=== PATIENT | female | born 1935 | race Two or more races ===

== ENCOUNTER 2017-04-19 19:17 | Inpatient (IN) | payer OTHER ==
[2017-04-19] MEDS: morphine 4 MG/ML VIAL IV (23:36)
[2017-04-19] MEDS: SODIUM CHLORIDE 0.9% 1L BAG IV* (23:36)
[2017-04-19] MEDS: ONDANSETRON 4 MG INJ IV (23:36)
[2017-04-19 23:38] LABS: ADD MAN DIFF? NO
[2017-04-19 23:46] LABS: WHITE BLOOD COUNT 13.1 10^3/ul (4.8-10.8)
[2017-04-19 23:46] LABS: ABNORMAL IP MESSAGE 1; BASOPHILS % 0.2 % (0.0-2.0); EOSINOPHILS # 0.2 10^3/ul (0.0-0.5); EOSINOPHILS % 1.6 % (0.0-7.0); HEMATOCRIT 23.9 % (37.0-47.0); LYMPHOCYTES # 2.5 10^3/ul (0.8-2.9); LYMPHOCYTES % 18.9 % (15.0-51.0); MEAN CORPUSCULAR HEMOGLOBIN 23.8 pg (29.0-33.0); MEAN CORPUSCULAR HGB CONC 28.5 g/dl (32.0-37.0); MEAN CORPUSCULAR VOLUME 83.6 fl (82.0-101.0); MEAN PLATELET VOLUME 8.9 fl (7.4-10.4); MONOCYTE # 1.1 10^3/ul (0.3-0.9); MONOCYTES % 8.3 % (0.0-11.0); NEUTROPHIL # 9.2 10^3/ul (1.6-7.5); NEUTROPHILS % 70.5 % (39.0-77.0); PLATELET COUNT 368 10^3/UL (140-415); RED BLOOD COUNT 2.86 10^6/ul (4.20-5.40); RED CELL DISTRIBUTION WIDTH 14.6 % (11.5-14.5)
[2017-04-19 23:52] LABS: HEMOGLOBIN 6.8 g/dl (12.0-16.0); POSITIVE DIFF @See below
[2017-04-19 23:53] LABS: PATH REVIEW? YES
[2017-04-20] LABS: INR 1.11; PROTIME 14.5 Sec (11.9-14.9); PT RATIO 1.1
[2017-04-20 00:01] LABS: PARTIAL THROMBOPLASTIN TIME 29.3 Sec (25.0-35.0)
[2017-04-20 00:03] LABS: ALANINE AMINOTRANSFERASE 25 IU/L (13-69); ALBUMIN 3.4 g/dl (3.3-4.9); ALBUMIN/GLOBULIN RATIO 1.03; ALKALINE PHOSPHATASE 54 IU/L (42-121); ANION GAP 15 (8-16); ASPARTATE AMINO TRANSFERASE 15 IU/L (15-46); BILIRUBIN,INDIRECT 0.2 mg/dl (0-1.1); BILIRUBIN,TOTAL 0.2 mg/dl (0.2-1.3); BLOOD UREA NITROGEN 18 mg/dl (7-20); CALCIUM 9.4 mg/dl (8.4-10.2); CARBON DIOXIDE 28 mmol/L (21-31); CHLORIDE 101 mmol/L (97-110); CREATININE 0.67 mg/dl (0.44-1.00); GLUCOSE 96 mg/dl (70-220); POTASSIUM 3.8 mmol/L (3.5-5.1); SODIUM 140 mmol/L (135-144); TOTAL PROTEIN 6.7 g/dl (6.1-8.1)
[2017-04-20 00:06] LABS: LACTIC ACID 1.5 mmol/L (0.5-2.0)
[2017-04-20 00:38] LABS: TROPONIN-I < 0.012 ng/ml (0.00-0.12)
[2017-04-20 01:15] LABS: LACTIC ACID 1.2 mmol/L (0.5-2.0)
[2017-04-20 06:38] LABS: IMMEDIATE SPIN CROSSMATCH 1 2
[2017-04-20] MEDS ORDERED: ACETAMINOPHEN 325 MG TAB PO (07:30)
[2017-04-20] MEDS ORDERED: GLUCOSE GEL 15 GRAM TUBE BUCCAL (07:30)
[2017-04-20] MEDS ORDERED: GLUCOSE GEL 15 GRAM TUBE PO ×2 (07:30)
[2017-04-20] MEDS ORDERED: GLUCAGON 1 MG INJ IM (07:30)
[2017-04-20] MEDS ORDERED: DEXTROSE 50% 50 ML SYRINGE IV ×2 (07:30)
[2017-04-20] MEDS ORDERED: NACL 0.9% 3 ML SYG IV (07:30)
[2017-04-20 08:43] LABS: CANCER ANTIGEN 125 6.3 U/ml (0.0-35.0)
[2017-04-20 09:07] LABS: ALPHA FETOPROTEIN 0.98 IU/L (0.00-7.21)
[2017-04-20] MEDS: INSULIN ASPART [NOVOLOG] 3 ML PEN SC ×2 (10:25→13:00)
[2017-04-20] MEDS: SOD CHLORIDE 0.9% 1,000 ML IV (10:27)
[2017-04-20] MEDS: morphine 2 MG INJ IV (10:46)
[2017-04-20 12:08] LABS: CARCINOEMBRYONIC ANTIGEN 6.1 ng/ml (0.0-5.0)
[2017-04-20 12:08] LABS: CANCER ANTIGEN 19-9 > 1000.0 U/ml (0.0-37.0)
[2017-04-20 13:23] LABS: ADD MAN DIFF? NO
[2017-04-20 13:25] LABS: WHITE BLOOD COUNT 8.7 10^3/ul (4.8-10.8)
[2017-04-20 13:25] LABS: BASOPHILS % 0.2 % (0.0-2.0); EOSINOPHILS # 0.1 10^3/ul (0.0-0.5); EOSINOPHILS % 1.3 % (0.0-7.0); HEMATOCRIT 25.6 % (37.0-47.0); HEMOGLOBIN 7.7 g/dl (12.0-16.0); LYMPHOCYTES # 1.3 10^3/ul (0.8-2.9); LYMPHOCYTES % 15.4 % (15.0-51.0); MEAN CORPUSCULAR HEMOGLOBIN 25.1 pg (29.0-33.0); MEAN CORPUSCULAR HGB CONC 30.1 g/dl (32.0-37.0); MEAN CORPUSCULAR VOLUME 83.4 fl (82.0-101.0); MONOCYTE # 0.8 10^3/ul (0.3-0.9); MONOCYTES % 9.1 % (0.0-11.0); NEUTROPHIL # 6.4 10^3/ul (1.6-7.5); NEUTROPHILS % 73.4 % (39.0-77.0); PLATELET COUNT 287 10^3/UL (140-415); RED BLOOD COUNT 3.07 10^6/ul (4.20-5.40); RED CELL DISTRIBUTION WIDTH 14.4 % (11.5-14.5)
[2017-04-20] MEDS ORDERED: LORAZEPAM 0.5 MG TAB PO (14:00)
[2017-04-20 14:18] LABS: LIPASE 94 U/L (23-300)
[2017-04-20] MEDS: FAMOTIDINE 20 MG INJ IV (16:52)
[2017-04-20] MEDS: Insulin NOVOLOG SS MILD Algorithm (SS with meals and bedtime) SC ×2 (17:25→21:00)
[2017-04-20] MEDS ORDERED: INSULIN ASPART [NOVOLOG] 3 ML PEN SC (17:25)
[2017-04-20] MEDS: POLYETHYLENE GLYCOL 17 GM PACKET PO (17:50)
[2017-04-20 19:23] LABS: ADD MAN DIFF? NO
[2017-04-20 19:27] LABS: WHITE BLOOD COUNT 10.3 10^3/ul (4.8-10.8)
[2017-04-20 19:27] LABS: BASOPHILS % 0.1 % (0.0-2.0); EOSINOPHILS # 0.2 10^3/ul (0.0-0.5); EOSINOPHILS % 1.9 % (0.0-7.0); HEMATOCRIT 27.1 % (37.0-47.0); HEMOGLOBIN 8.2 g/dl (12.0-16.0); LYMPHOCYTES # 1.6 10^3/ul (0.8-2.9); LYMPHOCYTES % 15.4 % (15.0-51.0); MEAN CORPUSCULAR HEMOGLOBIN 25.1 pg (29.0-33.0); MEAN CORPUSCULAR HGB CONC 30.3 g/dl (32.0-37.0); MEAN CORPUSCULAR VOLUME 82.9 fl (82.0-101.0); MEAN PLATELET VOLUME 8.9 fl (7.4-10.4); MONOCYTE # 0.9 10^3/ul (0.3-0.9); MONOCYTES % 8.7 % (0.0-11.0); NEUTROPHIL # 7.5 10^3/ul (1.6-7.5); NEUTROPHILS % 73.4 % (39.0-77.0); PLATELET COUNT 297 10^3/UL (140-415); RED BLOOD COUNT 3.27 10^6/ul (4.20-5.40); RED CELL DISTRIBUTION WIDTH 14.3 % (11.5-14.5)
[2017-04-20] MEDS: FERROUS SULFATE (EC) 325 MG TAB PO (20:55)
[2017-04-20 22:37] LABS: ADD UMIC YES; UR ASCORBIC ACID NEGATIVE (NEGATIVE); UR BILIRUBIN (Dip) NEGATIVE (NEGATIVE); UR BLOOD (Dip) 1+ mg/dL (NEGATIVE); UR CLARITY CLEAR (CLEAR); UR COLOR YELLOW (YELLOW); UR GLUCOSE (Dip) NEGATIVE (NEGATIVE); UR KETONES (Dip) NEGATIVE (NEGATIVE); UR LEUKOCYTE ESTERASE (Dip) NEGATIVE Leu/ul (NEGATIVE); UR MUCUS FEW /HPF (NONE SEEN); UR NITRITE (Dip) NEGATIVE (NEGATIVE); UR RBC 1 /HPF (0-5); UR SPECIFIC GRAVITY (Dip) 1.025 (1.003-1.030); UR SQUAMOUS EPITHELIAL CELL FEW /HPF (FEW); UR TOTAL PROTEIN (Dip) NEGATIVE (NEGATIVE); UR UROBILINOGEN (Dip) 2+ mg/dL (NEGATIVE); UR WBC 3 /HPF (0-5)
[2017-04-21] MEDS: ACCU-CHEK XX (02:00)
[2017-04-21] MEDS: ACCUCHECK AT 2AM (Patients on SS coverage) XX (02:00)
[2017-04-21 03:31] LABS: ADD MAN DIFF? NO
[2017-04-21 04:06] LABS: BASOPHILS % 0.2 % (0.0-2.0); EOSINOPHILS # 0.2 10^3/ul (0.0-0.5); EOSINOPHILS % 2.1 % (0.0-7.0); HEMATOCRIT 28.7 % (37.0-47.0); HEMOGLOBIN 8.5 g/dl (12.0-16.0); LYMPHOCYTES # 1.6 10^3/ul (0.8-2.9); LYMPHOCYTES % 16.8 % (15.0-51.0); MEAN CORPUSCULAR HEMOGLOBIN 24.8 pg (29.0-33.0); MEAN CORPUSCULAR HGB CONC 29.6 g/dl (32.0-37.0); MEAN CORPUSCULAR VOLUME 83.7 fl (82.0-101.0); MEAN PLATELET VOLUME 8.9 fl (7.4-10.4); MONOCYTE # 0.9 10^3/ul (0.3-0.9); MONOCYTES % 9.3 % (0.0-11.0); NEUTROPHIL # 6.6 10^3/ul (1.6-7.5); NEUTROPHILS % 71.1 % (39.0-77.0); PLATELET COUNT 312 10^3/UL (140-415); RED BLOOD COUNT 3.43 10^6/ul (4.20-5.40); RED CELL DISTRIBUTION WIDTH 14.6 % (11.5-14.5)
[2017-04-21 04:06] LABS: WHITE BLOOD COUNT 9.3 10^3/ul (4.8-10.8)
[2017-04-21] MEDS: PANTOPRAZOLE 40 MG INJ IV (06:26)
[2017-04-21 06:51] LABS: ADD MAN DIFF? NO
[2017-04-21 06:57] LABS: BASOPHILS % 0.2 % (0.0-2.0); EOSINOPHILS # 0.2 10^3/ul (0.0-0.5); EOSINOPHILS % 2.4 % (0.0-7.0); HEMATOCRIT 26.9 % (37.0-47.0); LYMPHOCYTES # 1.6 10^3/ul (0.8-2.9); LYMPHOCYTES % 17.6 % (15.0-51.0); MEAN CORPUSCULAR HGB CONC 29.7 g/dl (32.0-37.0); MEAN CORPUSCULAR VOLUME 84.1 fl (82.0-101.0); MEAN PLATELET VOLUME 9.1 fl (7.4-10.4); MONOCYTE # 0.8 10^3/ul (0.3-0.9); MONOCYTES % 9.1 % (0.0-11.0); NEUTROPHIL # 6.3 10^3/ul (1.6-7.5); NEUTROPHILS % 70.4 % (39.0-77.0); PLATELET COUNT 294 10^3/UL (140-415); RED CELL DISTRIBUTION WIDTH 14.5 % (11.5-14.5)
[2017-04-21 06:57] LABS: WHITE BLOOD COUNT 8.9 10^3/ul (4.8-10.8)
[2017-04-21] MEDS: Insulin NOVOLOG SS MILD Algorithm (SS with meals and bedtime) SC ×4 (07:25→21:00)
[2017-04-21 07:35] LABS: ALANINE AMINOTRANSFERASE 36 IU/L (13-69); ALBUMIN 2.9 g/dl (3.3-4.9); ALBUMIN/GLOBULIN RATIO 1.07; ALKALINE PHOSPHATASE 68 IU/L (42-121); ANION GAP 10 (8-16); ASPARTATE AMINO TRANSFERASE 25 IU/L (15-46); BILIRUBIN,INDIRECT 0.4 mg/dl (0-1.1); BILIRUBIN,TOTAL 0.4 mg/dl (0.2-1.3); BLOOD UREA NITROGEN 12 mg/dl (7-20); CALCIUM 8.7 mg/dl (8.4-10.2); CARBON DIOXIDE 31 mmol/L (21-31); CHLORIDE 104 mmol/L (97-110); CHOL/HDL RATIO 3.3 RATIO; CHOLESTEROL 76 mg/dl (100-200); CREATININE 0.73 mg/dl (0.44-1.00); GLUCOSE 96 mg/dl (70-220); HDL CHOLESTEROL 23 mg/dl (33-92); LDL CHOLESTEROL,CALCULATED 38 mg/dl; POTASSIUM 3.9 mmol/L (3.5-5.1); SODIUM 141 mmol/L (135-144); TOTAL PROTEIN 5.6 g/dl (6.1-8.1); TRIGLYCERIDES 77 mg/dl (0-149)
[2017-04-21 08:30] LABS: THYROID STIMULATING HORMONE 0.742 MIU/L (0.465-4.680)
[2017-04-21] MEDS: CYANOCOBALAMIN 500 MCG TAB PO (09:00)
[2017-04-21] MEDS: ASPIRIN (EC) 81 MG TAB PO (09:00)
[2017-04-21] MEDS: FERROUS SULFATE (EC) 325 MG TAB PO ×2 (09:00→21:00)
[2017-04-21] MEDS: VALSARTAN 80 MG TAB PO (09:04)
[2017-04-21] MEDS: AMLODIPINE 5 MG TAB PO (09:05)
[2017-04-21] MEDS: POLYETHYLENE GLYCOL 17 GM PACKET PO (09:05)
[2017-04-21] MEDS: DIGOXIN 0.25 MG TAB PO (09:05)
[2017-04-21 11:41] LABS: ADD MAN DIFF? NO
[2017-04-21 11:53] LABS: WHITE BLOOD COUNT 9.7 10^3/ul (4.8-10.8)
[2017-04-21 11:53] LABS: BASOPHILS % 0.1 % (0.0-2.0); EOSINOPHILS # 0.1 10^3/ul (0.0-0.5); EOSINOPHILS % 1.2 % (0.0-7.0); HEMATOCRIT 26.1 % (37.0-47.0); HEMOGLOBIN 7.8 g/dl (12.0-16.0); LYMPHOCYTES # 1.2 10^3/ul (0.8-2.9); LYMPHOCYTES % 12.6 % (15.0-51.0); MEAN CORPUSCULAR HEMOGLOBIN 24.9 pg (29.0-33.0); MEAN CORPUSCULAR HGB CONC 29.9 g/dl (32.0-37.0); MEAN CORPUSCULAR VOLUME 83.4 fl (82.0-101.0); MEAN PLATELET VOLUME 8.9 fl (7.4-10.4); MONOCYTE # 0.7 10^3/ul (0.3-0.9); MONOCYTES % 7.6 % (0.0-11.0); NEUTROPHIL # 7.6 10^3/ul (1.6-7.5); NEUTROPHILS % 78.1 % (39.0-77.0); PLATELET COUNT 293 10^3/UL (140-415); RED BLOOD COUNT 3.13 10^6/ul (4.20-5.40); RED CELL DISTRIBUTION WIDTH 14.7 % (11.5-14.5)
[2017-04-21] MEDS ORDERED: morphine LIQ (10 MG/5 ML) CUP PO (17:00)
[2017-04-21] MEDS: LACTULOSE 30ML CUP PO (20:57)
[2017-04-22 01:02] LABS: CANCER ANTIGEN 15-3 16 U/mL (<32)
[2017-04-22] MEDS: ACCU-CHEK XX (02:00)
[2017-04-22] MEDS: ACCUCHECK AT 2AM (Patients on SS coverage) XX (02:00)
[2017-04-22] MEDS: PANTOPRAZOLE 40 MG INJ IV (05:47)
[2017-04-22] MEDS: Insulin NOVOLOG SS MILD Algorithm (SS with meals and bedtime) SC ×4 (07:25→21:00)
[2017-04-22 07:49] LABS: ADD MAN DIFF? NO
[2017-04-22] MEDS: VALSARTAN 80 MG TAB PO (07:54)
[2017-04-22] MEDS: LACTULOSE 30ML CUP PO (07:54)
[2017-04-22] MEDS: AMLODIPINE 5 MG TAB PO (07:55)
[2017-04-22] MEDS: DIGOXIN 0.25 MG TAB PO (07:55)
[2017-04-22 07:57] LABS: BASOPHILS % 0.2 % (0.0-2.0); EOSINOPHILS # 0.2 10^3/ul (0.0-0.5); EOSINOPHILS % 2.5 % (0.0-7.0); HEMATOCRIT 26.5 % (37.0-47.0); HEMOGLOBIN 7.9 g/dl (12.0-16.0); LYMPHOCYTES # 1.8 10^3/ul (0.8-2.9); LYMPHOCYTES % 18.4 % (15.0-51.0); MEAN CORPUSCULAR HEMOGLOBIN 25.2 pg (29.0-33.0); MEAN CORPUSCULAR HGB CONC 29.8 g/dl (32.0-37.0); MEAN CORPUSCULAR VOLUME 84.4 fl (82.0-101.0); MEAN PLATELET VOLUME 9.2 fl (7.4-10.4); MONOCYTE # 0.8 10^3/ul (0.3-0.9); MONOCYTES % 8.8 % (0.0-11.0); NEUTROPHIL # 6.6 10^3/ul (1.6-7.5); NEUTROPHILS % 69.4 % (39.0-77.0); PLATELET COUNT 321 10^3/UL (140-415); RED BLOOD COUNT 3.14 10^6/ul (4.20-5.40); RED CELL DISTRIBUTION WIDTH 15.1 % (11.5-14.5)
[2017-04-22 07:57] LABS: WHITE BLOOD COUNT 9.5 10^3/ul (4.8-10.8)
[2017-04-22] MEDS: CYANOCOBALAMIN 500 MCG TAB PO (08:01)
[2017-04-22] MEDS: FERROUS SULFATE (EC) 325 MG TAB PO ×2 (08:01→21:07)
[2017-04-22] MEDS: ASPIRIN (EC) 81 MG TAB PO (08:01)
[2017-04-22 08:24] LABS: IRON < 10 ug/dl (35-150)
[2017-04-22 08:31] LABS: TOTAL IRON BINDING CAPACITY 338 ug/dl (241-421)
[2017-04-22 08:32] LABS: ALANINE AMINOTRANSFERASE 29 IU/L (13-69); ALBUMIN/GLOBULIN RATIO 1.07; ALKALINE PHOSPHATASE 67 IU/L (42-121); ANION GAP 11 (8-16); ASPARTATE AMINO TRANSFERASE 16 IU/L (15-46); BILIRUBIN,INDIRECT 0.2 mg/dl (0-1.1); BILIRUBIN,TOTAL 0.2 mg/dl (0.2-1.3); BLOOD UREA NITROGEN 13 mg/dl (7-20); CALCIUM 8.7 mg/dl (8.4-10.2); CARBON DIOXIDE 31 mmol/L (21-31); CHLORIDE 104 mmol/L (97-110); CREATININE 0.68 mg/dl (0.44-1.00); GLUCOSE 95 mg/dl (70-220); POTASSIUM 3.8 mmol/L (3.5-5.1); SODIUM 142 mmol/L (135-144); TOTAL PROTEIN 5.8 g/dl (6.1-8.1)
[2017-04-22] MEDS: POLYETHYLENE GLYCOL 17 GM PACKET PO (09:00)
[2017-04-22 09:22] LABS: FERRITIN 10.7 ng/ml (11.1-264.0)
[2017-04-22 12:52] LABS: OCCULT BLOOD STOOL POSITIVE (NEGATIVE)
[2017-04-22] MEDS: MIDAZOLAM 1 MG/ML 2 ML INJ (14:40)
[2017-04-22] MEDS: LIDOCAINE 2% (SDV) 5 ML INJ (14:40)
[2017-04-22] MEDS: PROPOFOL 20 ML (14:40)
[2017-04-22] MEDS ORDERED: LACTULOSE 30ML CUP PO (16:30)
[2017-04-22] MEDS: SOD FERRIC GLUC COMPLX 125 MG in SOD CHLORIDE 0.9% 100 ML IVPB (17:20)
[2017-04-23] MEDS: ACCUCHECK AT 2AM (Patients on SS coverage) XX (02:00)
[2017-04-23] MEDS: PANTOPRAZOLE 40 MG INJ IV (05:31)
[2017-04-23] MEDS: Insulin NOVOLOG SS MILD Algorithm (SS with meals and bedtime) SC ×2 (07:25→11:20)
[2017-04-23] MEDS: DIGOXIN 0.25 MG TAB PO (09:49)
[2017-04-23] MEDS: AMLODIPINE 5 MG TAB PO (09:49)
[2017-04-23] MEDS: VALSARTAN 80 MG TAB PO (09:49)
[2017-04-23] MEDS: CYANOCOBALAMIN 500 MCG TAB PO (09:49)
[2017-04-23] MEDS: ASPIRIN (EC) 81 MG TAB PO (09:49)
[2017-04-23] MEDS: FERROUS SULFATE (EC) 325 MG TAB PO (09:50)
[2017-04-23] MEDS: POLYETHYLENE GLYCOL 17 GM PACKET PO (09:50)
[2017-04-23] MEDS: SOD FERRIC GLUC COMPLX 125 MG in SOD CHLORIDE 0.9% 100 ML IVPB (12:13)
== END 2017-04-23 15:29 | disposition home or self-care (01) | DRG 375 ==
LOC: E/R 19:17 → TEL 04-20 05:50
PROC: 0DB68ZX Excision of Stomach, Via Natural or Artificial Opening Endoscopic, Diagnostic (ICD-10-PCS; principal; 2017-04-22 14:00)
PROC: 30233N1 Transfusion of Nonautologous Red Blood Cells into Peripheral Vein, Percutaneous Approach (ICD-10-PCS; 2017-04-22 14:00)
DX: C16.2 Malignant neoplasm of body of stomach (principal); C78.7 Secondary malignant neoplasm of liver and intrahepatic bile duct; I11.0 Hypertensive heart disease with heart failure; I48.91 Unspecified atrial fibrillation; K31.1 Adult hypertrophic pyloric stenosis; I50.9 Heart failure, unspecified; D37.8 Neoplasm of uncertain behavior of other specified digestive organs; D50.0 Iron deficiency anemia secondary to blood loss (chronic); E11.9 Type 2 diabetes mellitus without complications; K59.09 Other constipation; K22.5 Diverticulum of esophagus, acquired; R63.4 Abnormal weight loss; Z96.641 Presence of right artificial hip joint; Z68.24 Body mass index [BMI] 24.0-24.9, adult; Z90.49 Acquired absence of other specified parts of digestive tract; Z85.828 Personal history of other malignant neoplasm of skin; Z79.4 Long term (current) use of insulin
CPT/HCPCS: 36415; 36430; 71045; 74176; 74183; 80053; 80061; 80162; 81001; 82105; 82270; 82378; 82728; 82962; 83036; 83540; 83605; 83690; 83735; 84443; 84484; 85025; 85610; 85730; 86300; 86301; 86304; 86850; 86900; 86901; 86920; 87040; 87045; 87086; 88305; 88312; 93005; 93306; 96374; 96375; 99285-25

== ENCOUNTER 2017-05-13 15:37 | Inpatient (IN) | payer OTHER ==
[2017-05-13 17:49] LABS: ABNORMAL IP MESSAGE 1; MEAN PLATELET VOLUME 9.9 fl (7.4-10.4)
[2017-05-13 17:58] LABS: HEMATOCRIT 18.6 % (37.0-47.0); MEAN CORPUSCULAR VOLUME 79.1 fl (82.0-101.0); NUCLEATED RED BLOOD CELLS% 0.2 /100WBC (0.0-0.0); PLATELET COUNT 349 10^3/UL (140-415); RED BLOOD COUNT 2.35 10^6/ul (4.20-5.40); RED CELL DISTRIBUTION WIDTH 16.5 % (11.5-14.5)
[2017-05-13 17:58] LABS: WHITE BLOOD COUNT 10.8 10^3/ul (4.8-10.8)
[2017-05-13 18:02] LABS: ADD MAN DIFF? YES; HEMOGLOBIN 5.4 g/dl (12.0-16.0); POSITIVE DIFF @See below
[2017-05-13 18:09] LABS: INR 1.11; PROTIME 14.5 Sec (11.9-14.9); PT RATIO 1.1
[2017-05-13 18:10] LABS: ALANINE AMINOTRANSFERASE 23 IU/L (13-69); ALBUMIN/GLOBULIN RATIO 0.93; ALKALINE PHOSPHATASE 60 IU/L (42-121); ANION GAP 17 (8-16); ASPARTATE AMINO TRANSFERASE 13 IU/L (15-46); BILIRUBIN,INDIRECT 0.1 mg/dl (0-1.1); BILIRUBIN,TOTAL 0.1 mg/dl (0.2-1.3); BLOOD UREA NITROGEN 14 mg/dl (7-20); CALCIUM 8.7 mg/dl (8.4-10.2); CARBON DIOXIDE 25 mmol/L (21-31); CHLORIDE 101 mmol/L (97-110); CREATININE 0.66 mg/dl (0.44-1.00); GLUCOSE 103 mg/dl (70-220); LIPASE 70 U/L (23-300); PARTIAL THROMBOPLASTIN TIME 21.7 Sec (25.0-35.0); POTASSIUM 4.1 mmol/L (3.5-5.1); SODIUM 139 mmol/L (135-144); TOTAL PROTEIN 6.2 g/dl (6.1-8.1)
[2017-05-13 18:14] LABS: DIGOXIN 0.7 ng/ml (1.0-2.0)
[2017-05-13 18:21] LABS: B-TYPE NATRIURETIC PEPTIDE 2730 PG/ML (0-450)
[2017-05-13 18:22] LABS: TROPONIN-I < 0.012 ng/ml (0.00-0.12)
[2017-05-13 18:29] LABS: ANISOCYTOSIS 2+ (0-0); ERYTHROBLAST% (NRBC) (M) 1 % (0-0); HYPOCHROMASIA 2+ (0-0); LYMPHOCYTES #M 1.5 10^3/ul (0.8-2.9); LYMPHOCYTES % (M) 14 % (15-51); MICROCYTOSIS 2+ (0-0); MONOCYTE #M 0.3 10^3/ul (0.3-0.9); MONOCYTES % (M) 3 % (0-11); PLATELET ESTIMATE NORMAL; POIKILOCYTOSIS 1+ (0-0); POLYCHROMASIA 1+ (0-0); SEGMENTED NEUTROPHILS (M) % 83 % (39-77)
[2017-05-13] MEDS: SOD CHLORIDE 0.9% 1,000 ML IV (19:02)
[2017-05-13] MEDS ORDERED: ALBUTEROL/IPRATROPIUM (NEB) 3 ML AMP HHN (23:30)
[2017-05-13] MEDS ORDERED: NACL 0.9% 3 ML SYG IV (23:30)
[2017-05-13] MEDS ORDERED: ACETAMINOPHEN 325 MG TAB PO (23:30)
[2017-05-14] MEDS: PANTOPRAZOLE 40 MG INJ IV (05:48)
[2017-05-14 08:18] LABS: ADD MAN DIFF? NO
[2017-05-14 08:21] LABS: WHITE BLOOD COUNT 10.6 10^3/ul (4.8-10.8)
[2017-05-14 08:21] LABS: BASOPHILS % 0.2 % (0.0-2.0); EOSINOPHILS # 0.1 10^3/ul (0.0-0.5); EOSINOPHILS % 1.3 % (0.0-7.0); HEMATOCRIT 24.3 % (37.0-47.0); HEMOGLOBIN 7.4 g/dl (12.0-16.0); LYMPHOCYTES # 1.5 10^3/ul (0.8-2.9); LYMPHOCYTES % 14.1 % (15.0-51.0); MEAN CORPUSCULAR HEMOGLOBIN 24.6 pg (29.0-33.0); MEAN CORPUSCULAR HGB CONC 30.5 g/dl (32.0-37.0); MEAN CORPUSCULAR VOLUME 80.7 fl (82.0-101.0); MONOCYTE # 0.9 10^3/ul (0.3-0.9); MONOCYTES % 8.2 % (0.0-11.0); NEUTROPHILS % 75.5 % (39.0-77.0); PLATELET COUNT 356 10^3/UL (140-415); RED BLOOD COUNT 3.01 10^6/ul (4.20-5.40); RED CELL DISTRIBUTION WIDTH 15.9 % (11.5-14.5)
[2017-05-14] MEDS: FERROUS SULFATE (EC) 325 MG TAB PO ×2 (08:40→20:42)
[2017-05-14 08:46] LABS: ALANINE AMINOTRANSFERASE 15 IU/L (13-69); ALBUMIN 2.7 g/dl (3.3-4.9); ALKALINE PHOSPHATASE 57 IU/L (42-121); ANION GAP 14 (8-16); ASPARTATE AMINO TRANSFERASE 14 IU/L (15-46); BILIRUBIN,INDIRECT 0.9 mg/dl (0-1.1); BILIRUBIN,TOTAL 0.9 mg/dl (0.2-1.3); BLOOD UREA NITROGEN 12 mg/dl (7-20); CALCIUM 8.6 mg/dl (8.4-10.2); CARBON DIOXIDE 27 mmol/L (21-31); CHLORIDE 104 mmol/L (97-110); CREATININE 0.66 mg/dl (0.44-1.00); GLUCOSE 100 mg/dl (70-220); POTASSIUM 4.1 mmol/L (3.5-5.1); SODIUM 141 mmol/L (135-144); TOTAL PROTEIN 5.7 g/dl (6.1-8.1)
[2017-05-14 13:20] LABS: IMMEDIATE SPIN CROSSMATCH 1 4
[2017-05-14] MEDS: DIGOXIN 0.25 MG TAB PO (14:07)
[2017-05-14] MEDS: DOCUSATE SODIUM 100 MG CAP PO (14:35)
[2017-05-14] MEDS: morphine 2 MG INJ IV ×2 (14:42→21:13)
[2017-05-14 14:49] LABS: PATH REVIEW CH
[2017-05-14] MEDS: LORAZEPAM 0.5 MG TAB PO (16:34)
[2017-05-14] MEDS: SENNA/DOCUSATE NA (8.6MG/50MG) TAB PO (20:42)
[2017-05-15] MEDS: LORAZEPAM 0.5 MG TAB PO (00:07)
[2017-05-15] MEDS: ONDANSETRON 4 MG INJ IV (00:07)
[2017-05-15] MEDS: PANTOPRAZOLE 40 MG INJ IV (06:15)
[2017-05-15] MEDS: FERROUS SULFATE (EC) 325 MG TAB PO (08:27)
[2017-05-15] MEDS: SENNA/DOCUSATE NA (8.6MG/50MG) TAB PO (08:27)
[2017-05-15 08:31] LABS: ADD MAN DIFF? NO
[2017-05-15 08:37] LABS: BASOPHILS % 0.2 % (0.0-2.0); EOSINOPHILS # 0.1 10^3/ul (0.0-0.5); HEMATOCRIT 30.8 % (37.0-47.0); HEMOGLOBIN 9.4 g/dl (12.0-16.0); LYMPHOCYTES # 1.5 10^3/ul (0.8-2.9); LYMPHOCYTES % 11.5 % (15.0-51.0); MEAN CORPUSCULAR HEMOGLOBIN 25.1 pg (29.0-33.0); MEAN CORPUSCULAR HGB CONC 30.5 g/dl (32.0-37.0); MEAN CORPUSCULAR VOLUME 82.4 fl (82.0-101.0); MONOCYTES % 7.7 % (0.0-11.0); NEUTROPHIL # 9.9 10^3/ul (1.6-7.5); NEUTROPHILS % 78.6 % (39.0-77.0); NUCLEATED RED BLOOD CELLS% 0.2 /100WBC (0.0-0.0); PLATELET COUNT 318 10^3/UL (140-415); RED BLOOD COUNT 3.74 10^6/ul (4.20-5.40); RED CELL DISTRIBUTION WIDTH 16.2 % (11.5-14.5)
[2017-05-15 08:37] LABS: WHITE BLOOD COUNT 12.6 10^3/ul (4.8-10.8)
[2017-05-15] MEDS: DIGOXIN 0.25 MG TAB PO (12:43)
[2017-05-15] MEDS: LACTULOSE 30ML CUP PO (12:43)
== END 2017-05-15 18:10 | disposition home or self-care (01) | DRG 375 ==
LOC: TEL 18:05 → E/R 15:37
PROVIDERS: Pediatrics
PROC: 30233N1 Transfusion of Nonautologous Red Blood Cells into Peripheral Vein, Percutaneous Approach (ICD-10-PCS; 2017-05-13)
PROC: 30233N1 Transfusion of Nonautologous Red Blood Cells into Peripheral Vein, Percutaneous Approach (ICD-10-PCS; principal; 2017-05-14)
DX: C16.9 Malignant neoplasm of stomach, unspecified (principal); C78.7 Secondary malignant neoplasm of liver and intrahepatic bile duct; C78.89 Secondary malignant neoplasm of other digestive organs; D63.0 Anemia in neoplastic disease; I48.91 Unspecified atrial fibrillation; I10 Essential (primary) hypertension; E11.9 Type 2 diabetes mellitus without complications; Z90.49 Acquired absence of other specified parts of digestive tract; Z79.84 Long term (current) use of oral hypoglycemic drugs
CPT/HCPCS: 36415; 36430; 71045; 80053; 80162; 83690; 83735; 83880; 84484; 85025; 85610; 85730; 86850; 86900; 86901; 86920; 87081; 93005; 99291-25

== ENCOUNTER 2017-06-02 21:17 | Inpatient (IN) | payer OTHER ==
[2017-06-02 23:20] LABS: ADD MAN DIFF? NO
[2017-06-02] MEDS: SODIUM CHLORIDE 0.9% 1L BAG IV* (23:20)
[2017-06-02 23:22] LABS: WHITE BLOOD COUNT 13.5 10^3/ul (4.8-10.8)
[2017-06-02 23:22] LABS: BASOPHILS % 0.1 % (0.0-2.0); EOSINOPHILS # 0.1 10^3/ul (0.0-0.5); EOSINOPHILS % 0.5 % (0.0-7.0); HEMATOCRIT 32.2 % (37.0-47.0); HEMOGLOBIN 9.7 g/dl (12.0-16.0); LYMPHOCYTES # 1.1 10^3/ul (0.8-2.9); LYMPHOCYTES % 8.5 % (15.0-51.0); MEAN CORPUSCULAR HEMOGLOBIN 25.7 pg (29.0-33.0); MEAN CORPUSCULAR HGB CONC 30.1 g/dl (32.0-37.0); MEAN CORPUSCULAR VOLUME 85.2 fl (82.0-101.0); MEAN PLATELET VOLUME 8.5 fl (7.4-10.4); MONOCYTE # 0.8 10^3/ul (0.3-0.9); MONOCYTES % 6.2 % (0.0-11.0); NEUTROPHIL # 11.3 10^3/ul (1.6-7.5); NEUTROPHILS % 84.1 % (39.0-77.0); PLATELET COUNT 340 10^3/UL (140-415); RED BLOOD COUNT 3.78 10^6/ul (4.20-5.40); RED CELL DISTRIBUTION WIDTH 16.7 % (11.5-14.5)
[2017-06-02 23:40] LABS: LACTIC ACID 1.4 mmol/L (0.5-2.0)
[2017-06-02 23:41] LABS: ALANINE AMINOTRANSFERASE 20 IU/L (13-69); ALBUMIN 2.8 g/dl (3.3-4.9); ALBUMIN/GLOBULIN RATIO 0.96; ALKALINE PHOSPHATASE 47 IU/L (42-121); ANION GAP 15 (8-16); ASPARTATE AMINO TRANSFERASE 21 IU/L (15-46); BILIRUBIN,INDIRECT 0.3 mg/dl (0-1.1); BILIRUBIN,TOTAL 0.3 mg/dl (0.2-1.3); BLOOD UREA NITROGEN 20 mg/dl (7-20); CALCIUM 8.8 mg/dl (8.4-10.2); CARBON DIOXIDE 26 mmol/L (21-31); CHLORIDE 98 mmol/L (97-110); CREATININE 0.46 mg/dl (0.44-1.00); GLUCOSE 111 mg/dl (70-220); POTASSIUM 3.7 mmol/L (3.5-5.1); SODIUM 135 mmol/L (135-144); TOTAL PROTEIN 5.7 g/dl (6.1-8.1)
[2017-06-02 23:47] LABS: INR 1.08; PROTIME 14.1 Sec (11.9-14.9); PT RATIO 1.1
[2017-06-02 23:48] LABS: PARTIAL THROMBOPLASTIN TIME 31.6 Sec (25.0-35.0)
[2017-06-02 23:53] LABS: TROPONIN-I < 0.012 ng/ml (0.00-0.12)
[2017-06-03 00:10] LABS: ADD UMIC YES; UR ASCORBIC ACID NEGATIVE (NEGATIVE); UR BACTERIA FEW /HPF (NONE SEEN); UR BILIRUBIN (Dip) NEGATIVE (NEGATIVE); UR BLOOD (Dip) NEGATIVE (NEGATIVE); UR CLARITY CLEAR (CLEAR); UR COLOR YELLOW (YELLOW); UR GLUCOSE (Dip) NEGATIVE (NEGATIVE); UR KETONES (Dip) 2+ mg/dL (NEGATIVE); UR LEUKOCYTE ESTERASE (Dip) 1+ Leu/ul (NEGATIVE); UR NITRITE (Dip) NEGATIVE (NEGATIVE); UR RBC 1 /HPF (0-5); UR SPECIFIC GRAVITY (Dip) 1.026 (1.003-1.030); UR SQUAMOUS EPITHELIAL CELL FEW /HPF (FEW); UR TOTAL PROTEIN (Dip) NEGATIVE (NEGATIVE); UR UROBILINOGEN (Dip) 2+ mg/dL (NEGATIVE); UR WBC 15 /HPF (0-5)
[2017-06-03 00:42] LABS: LACTIC ACID 1.1 mmol/L (0.5-2.0)
[2017-06-03] MEDS ORDERED: METOCLOPRAMIDE 10 MG INJ IV (05:30)
[2017-06-03] MEDS ORDERED: NACL 0.9% 3 ML SYG IV (05:30)
[2017-06-03 05:58] LABS: ADD MAN DIFF? NO
[2017-06-03 06:08] LABS: WHITE BLOOD COUNT 11.9 10^3/ul (4.8-10.8)
[2017-06-03 06:08] LABS: BASOPHILS % 0.2 % (0.0-2.0); EOSINOPHILS # 0.1 10^3/ul (0.0-0.5); EOSINOPHILS % 1.1 % (0.0-7.0); HEMATOCRIT 26.9 % (37.0-47.0); HEMOGLOBIN 8.1 g/dl (12.0-16.0); LYMPHOCYTES # 1.3 10^3/ul (0.8-2.9); LYMPHOCYTES % 10.9 % (15.0-51.0); MEAN CORPUSCULAR HEMOGLOBIN 25.6 pg (29.0-33.0); MEAN CORPUSCULAR HGB CONC 30.1 g/dl (32.0-37.0); MEAN CORPUSCULAR VOLUME 84.9 fl (82.0-101.0); MEAN PLATELET VOLUME 8.5 fl (7.4-10.4); MONOCYTE # 0.9 10^3/ul (0.3-0.9); MONOCYTES % 7.6 % (0.0-11.0); NEUTROPHIL # 9.5 10^3/ul (1.6-7.5); NEUTROPHILS % 79.8 % (39.0-77.0); PLATELET COUNT 304 10^3/UL (140-415); RED BLOOD COUNT 3.17 10^6/ul (4.20-5.40); RED CELL DISTRIBUTION WIDTH 16.7 % (11.5-14.5)
[2017-06-03] MEDS: PANTOPRAZOLE 40 MG INJ IV ×2 (07:12→20:28)
[2017-06-03] MEDS: SOD CHLORIDE 0.9% 1,000 ML IV ×2 (07:13→16:38)
[2017-06-03] MEDS ORDERED: DOCUSATE SODIUM 100 MG CAP PO (09:30)
[2017-06-03] MEDS ORDERED: DEXTROSE 50% 50 ML SYRINGE IV ×2 (10:00)
[2017-06-03] MEDS ORDERED: GLUCAGON 1 MG INJ IM (10:00)
[2017-06-03] MEDS ORDERED: GLUCOSE GEL 15 GRAM TUBE BUCCAL (10:00)
[2017-06-03] MEDS ORDERED: GLUCOSE GEL 15 GRAM TUBE PO ×2 (10:00)
[2017-06-03] MEDS: INSULIN ASPART [NOVOLOG] 3 ML PEN SC ×3 (11:28→20:33)
[2017-06-03 12:14] LABS: IMMEDIATE SPIN CROSSMATCH 1 1
[2017-06-03] MEDS: SOD FERRIC GLUC COMPLX 125 MG in SOD CHLORIDE 0.9% 100 ML IVPB (17:33)
[2017-06-03 17:53] LABS: ADD MAN DIFF? NO
[2017-06-03 17:56] LABS: BASOPHILS % 0.2 % (0.0-2.0); EOSINOPHILS # 0.1 10^3/ul (0.0-0.5); EOSINOPHILS % 0.5 % (0.0-7.0); HEMATOCRIT 28.6 % (37.0-47.0); HEMOGLOBIN 8.8 g/dl (12.0-16.0); LYMPHOCYTES # 1.1 10^3/ul (0.8-2.9); LYMPHOCYTES % 8.9 % (15.0-51.0); MEAN CORPUSCULAR HEMOGLOBIN 25.8 pg (29.0-33.0); MEAN CORPUSCULAR HGB CONC 30.8 g/dl (32.0-37.0); MEAN CORPUSCULAR VOLUME 83.9 fl (82.0-101.0); MEAN PLATELET VOLUME 8.2 fl (7.4-10.4); MONOCYTE # 0.8 10^3/ul (0.3-0.9); MONOCYTES % 6.7 % (0.0-11.0); NEUTROPHIL # 9.9 10^3/ul (1.6-7.5); NEUTROPHILS % 83.1 % (39.0-77.0); PLATELET COUNT 299 10^3/UL (140-415); RED BLOOD COUNT 3.41 10^6/ul (4.20-5.40); RED CELL DISTRIBUTION WIDTH 16.6 % (11.5-14.5)
[2017-06-03 17:56] LABS: WHITE BLOOD COUNT 11.8 10^3/ul (4.8-10.8)
[2017-06-03] MEDS: ONDANSETRON 4 MG INJ IV (20:28)
[2017-06-03] MEDS: DOCUSATE SODIUM 100 MG CAP PO (20:33)
[2017-06-03] MEDS: FERROUS SULFATE (EC) 325 MG TAB PO (20:33)
[2017-06-04] MEDS: ACCU-CHEK XX (02:00)
[2017-06-04 06:14] LABS: ADD MAN DIFF? NO
[2017-06-04] MEDS: SOD CHLORIDE 0.9% 1,000 ML IV (06:15)
[2017-06-04 06:18] LABS: BASOPHILS % 0.2 % (0.0-2.0); EOSINOPHILS # 0.2 10^3/ul (0.0-0.5); EOSINOPHILS % 1.3 % (0.0-7.0); HEMATOCRIT 30.6 % (37.0-47.0); HEMOGLOBIN 9.3 g/dl (12.0-16.0); LYMPHOCYTES # 1.5 10^3/ul (0.8-2.9); LYMPHOCYTES % 12.1 % (15.0-51.0); MEAN CORPUSCULAR HEMOGLOBIN 25.8 pg (29.0-33.0); MEAN CORPUSCULAR HGB CONC 30.4 g/dl (32.0-37.0); MEAN CORPUSCULAR VOLUME 84.8 fl (82.0-101.0); MEAN PLATELET VOLUME 8.4 fl (7.4-10.4); MONOCYTE # 0.9 10^3/ul (0.3-0.9); MONOCYTES % 7.6 % (0.0-11.0); NEUTROPHIL # 9.4 10^3/ul (1.6-7.5); NEUTROPHILS % 78.4 % (39.0-77.0); PLATELET COUNT 318 10^3/UL (140-415); RED BLOOD COUNT 3.61 10^6/ul (4.20-5.40); RED CELL DISTRIBUTION WIDTH 16.5 % (11.5-14.5)
[2017-06-04 06:42] LABS: INR 1.14; PROTIME 14.8 Sec (11.9-14.9); PT RATIO 1.2
[2017-06-04 06:43] LABS: PARTIAL THROMBOPLASTIN TIME 35.1 Sec (25.0-35.0)
[2017-06-04 06:59] LABS: ALANINE AMINOTRANSFERASE 22 IU/L (13-69); ALBUMIN 2.4 g/dl (3.3-4.9); ALBUMIN/GLOBULIN RATIO 0.88; ALKALINE PHOSPHATASE 45 IU/L (42-121); ANION GAP 13 (8-16); ASPARTATE AMINO TRANSFERASE 17 IU/L (15-46); BILIRUBIN,INDIRECT 0.5 mg/dl (0-1.1); BILIRUBIN,TOTAL 0.5 mg/dl (0.2-1.3); BLOOD UREA NITROGEN 15 mg/dl (7-20); CALCIUM 8.3 mg/dl (8.4-10.2); CARBON DIOXIDE 25 mmol/L (21-31); CHLORIDE 104 mmol/L (97-110); CREATININE 0.45 mg/dl (0.44-1.00); GLUCOSE 97 mg/dl (70-220); POTASSIUM 3.4 mmol/L (3.5-5.1); SODIUM 139 mmol/L (135-144); TOTAL PROTEIN 5.1 g/dl (6.1-8.1)
[2017-06-04] MEDS: INSULIN ASPART [NOVOLOG] 3 ML PEN SC ×4 (08:00→20:47)
[2017-06-04] MEDS: PANTOPRAZOLE 40 MG INJ IV ×2 (08:43→20:41)
[2017-06-04] MEDS: DOCUSATE SODIUM 100 MG CAP PO ×2 (08:49→20:38)
[2017-06-04] MEDS: FERROUS SULFATE (EC) 325 MG TAB PO ×2 (08:49→20:38)
[2017-06-04] MEDS ORDERED: POTASSIUM CHLORIDE 20 MEQ in SOD CHLORIDE 0.9% 1,000 ML IV (11:04)
[2017-06-04] MEDS: DIGOXIN 0.25 MG TAB PO (13:00)
[2017-06-04] MEDS: NS + KCL 20 MEQ 1,000 ML IV (13:31)
[2017-06-04] MEDS: POTASSIUM CHLORIDE 100 ML IVPB (13:32)
[2017-06-04] MEDS ORDERED: PROPOFOL 40 ML (15:33)
[2017-06-04] MEDS: METOCLOPRAMIDE 10 MG INJ IV (17:34)
[2017-06-04] MEDS: SOD FERRIC GLUC COMPLX 125 MG in SOD CHLORIDE 0.9% 100 ML IVPB (17:34)
[2017-06-04 18:24] LABS: HEMATOCRIT 31.2 % (37.0-47.0); HEMOGLOBIN 9.4 g/dl (12.0-16.0)
[2017-06-04] MEDS: D5W-0.45 NACL + KCL 30 MEQ 1,000 ML IV (22:52)
[2017-06-05] MEDS: METOCLOPRAMIDE 10 MG INJ IV ×4 (00:49→17:48)
[2017-06-05] MEDS: INSULIN ASPART [NOVOLOG] 3 ML PEN SC ×6 (00:54→21:00)
[2017-06-05 06:42] LABS: ADD MAN DIFF? NO
[2017-06-05 06:43] LABS: ANION GAP 14 (8-16); BLOOD UREA NITROGEN 12 mg/dl (7-20); CALCIUM 8.5 mg/dl (8.4-10.2); CARBON DIOXIDE 26 mmol/L (21-31); CHLORIDE 105 mmol/L (97-110); GLUCOSE 98 mg/dl (70-220); MAGNESIUM 1.8 mg/dl (1.7-2.5); POTASSIUM 3.6 mmol/L (3.5-5.1); SODIUM 141 mmol/L (135-144)
[2017-06-05] MEDS: PANTOPRAZOLE 40 MG INJ IV ×2 (08:41→21:16)
[2017-06-05] MEDS: DOCUSATE SODIUM 100 MG CAP PO ×2 (09:00→21:00)
[2017-06-05] MEDS: FERROUS SULFATE (EC) 325 MG TAB PO ×2 (09:00→21:00)
[2017-06-05] MEDS: D5W-0.45 NACL + KCL 30 MEQ 1,000 ML IV ×2 (10:30→12:33)
[2017-06-05 10:46] LABS: BASOPHILS % 0.3 % (0.0-2.0); EOSINOPHILS # 0.1 10^3/ul (0.0-0.5); EOSINOPHILS % 1.1 % (0.0-7.0); HEMATOCRIT 29.6 % (37.0-47.0); HEMOGLOBIN 8.8 g/dl (12.0-16.0); LYMPHOCYTES # 1.5 10^3/ul (0.8-2.9); LYMPHOCYTES % 13.9 % (15.0-51.0); MEAN CORPUSCULAR HGB CONC 29.7 g/dl (32.0-37.0); MEAN CORPUSCULAR VOLUME 87.3 fl (82.0-101.0); MEAN PLATELET VOLUME 8.7 fl (7.4-10.4); MONOCYTE # 0.8 10^3/ul (0.3-0.9); MONOCYTES % 7.6 % (0.0-11.0); NEUTROPHILS % 76.7 % (39.0-77.0); PLATELET COUNT 318 10^3/UL (140-415); RED BLOOD COUNT 3.39 10^6/ul (4.20-5.40); RED CELL DISTRIBUTION WIDTH 16.6 % (11.5-14.5)
[2017-06-05 10:46] LABS: WHITE BLOOD COUNT 10.5 10^3/ul (4.8-10.8)
[2017-06-05] MEDS ORDERED: MEROPENEM 1 GM/50ML(PMX) 50 ML IVPB (11:00)
[2017-06-05] MEDS: LEVOFLOXACIN 500MG/D5W (PMX) 100 ML IVPB (11:15)
[2017-06-05] MEDS: MEROPENEM 500MG/50 ML (PMX) 50 ML IVPB ×2 (12:24→21:17)
[2017-06-05] MEDS: DIGOXIN 0.25 MG TAB PO (13:00)
[2017-06-05] MEDS: SOD FERRIC GLUC COMPLX 125 MG in SOD CHLORIDE 0.9% 100 ML IVPB (17:00)
[2017-06-06] MEDS: METOCLOPRAMIDE 10 MG INJ IV ×4 (00:08→18:12)
[2017-06-06] MEDS: morphine 2 MG INJ IV (00:46)
[2017-06-06] MEDS: INSULIN ASPART [NOVOLOG] 3 ML PEN SC ×6 (01:00→21:00)
[2017-06-06 01:35] LABS: ANION GAP 11 (8-16); BLOOD UREA NITROGEN 8 mg/dl (7-20); CALCIUM 8.6 mg/dl (8.4-10.2); CARBON DIOXIDE 28 mmol/L (21-31); CHLORIDE 101 mmol/L (97-110); CREATININE 0.43 mg/dl (0.44-1.00); GLUCOSE 110 mg/dl (70-220); MAGNESIUM 1.6 mg/dl (1.7-2.5); POTASSIUM 3.2 mmol/L (3.5-5.1); SODIUM 137 mmol/L (135-144)
[2017-06-06 01:46] LABS: TROPONIN-I 0.012 ng/ml (0.00-0.12)
[2017-06-06] MEDS ORDERED: DIGOXIN 500 MCG INJ IV (02:01)
[2017-06-06] MEDS: POTASSIUM CHLORIDE 100 ML IVPB ×2 (02:50→09:05)
[2017-06-06] MEDS: MAGNESIUM SULFATE 2 GM/50 ML 50 ML IVPB (02:51)
[2017-06-06] MEDS: METOPROLOL 5 MG INJ IV (03:00)
[2017-06-06] MEDS: DIGOXIN 500 MCG INJ IV (03:42)
[2017-06-06] MEDS ORDERED: LEVOFLOXACIN 500 MG TAB PO (06:00)
[2017-06-06 06:54] LABS: ADD MAN DIFF? NO
[2017-06-06 06:58] LABS: BASOPHILS % 0.3 % (0.0-2.0); EOSINOPHILS # 0.1 10^3/ul (0.0-0.5); EOSINOPHILS % 1.1 % (0.0-7.0); HEMATOCRIT 31.2 % (37.0-47.0); HEMOGLOBIN 9.4 g/dl (12.0-16.0); LYMPHOCYTES # 1.3 10^3/ul (0.8-2.9); LYMPHOCYTES % 12.5 % (15.0-51.0); MEAN CORPUSCULAR HEMOGLOBIN 25.8 pg (29.0-33.0); MEAN CORPUSCULAR HGB CONC 30.1 g/dl (32.0-37.0); MEAN CORPUSCULAR VOLUME 85.7 fl (82.0-101.0); MEAN PLATELET VOLUME 8.3 fl (7.4-10.4); MONOCYTE # 0.9 10^3/ul (0.3-0.9); MONOCYTES % 8.3 % (0.0-11.0); NEUTROPHIL # 8.1 10^3/ul (1.6-7.5); NEUTROPHILS % 77.2 % (39.0-77.0); PLATELET COUNT 296 10^3/UL (140-415); RED BLOOD COUNT 3.64 10^6/ul (4.20-5.40); RED CELL DISTRIBUTION WIDTH 16.9 % (11.5-14.5)
[2017-06-06 06:58] LABS: WHITE BLOOD COUNT 10.5 10^3/ul (4.8-10.8)
[2017-06-06] MEDS: PANTOPRAZOLE 40 MG INJ IV ×2 (08:58→21:36)
[2017-06-06] MEDS: DOCUSATE SODIUM 100 MG CAP PO ×2 (09:00→21:00)
[2017-06-06] MEDS: FERROUS SULFATE (EC) 325 MG TAB PO ×2 (09:00→21:00)
[2017-06-06] MEDS ORDERED: POTASSIUM CHLORIDE 100 ML IVPB (10:00)
[2017-06-06] MEDS ORDERED: MAGNESIUM SULFATE 4 GM/100 ML 100 ML IVPB (10:00)
[2017-06-06] MEDS: MEROPENEM 500MG/50 ML (PMX) 50 ML IVPB ×2 (10:34→21:37)
[2017-06-06] MEDS: LEVOFLOXACIN 500MG/D5W (PMX) 100 ML IVPB (11:21)
[2017-06-06] MEDS: D5W-0.45 NACL + KCL 30 MEQ 1,000 ML IV (11:21)
[2017-06-06] MEDS: NA PHOSPHATE/BIPHOS 133 ML ENEMA PR (15:26)
[2017-06-06] MEDS: SOD FERRIC GLUC COMPLX 125 MG in SOD CHLORIDE 0.9% 100 ML IVPB (16:13)
[2017-06-07] MEDS: INSULIN ASPART [NOVOLOG] 3 ML PEN SC ×6 (00:42→20:48)
[2017-06-07] MEDS: METOCLOPRAMIDE 10 MG INJ IV ×5 (00:54→23:46)
[2017-06-07] MEDS: D5W-0.45 NACL + KCL 30 MEQ 1,000 ML IV ×3 (00:55→15:21)
[2017-06-07 07:00] LABS: ANION GAP 12 (8-16); BLOOD UREA NITROGEN 4 mg/dl (7-20); CALCIUM 8.4 mg/dl (8.4-10.2); CARBON DIOXIDE 28 mmol/L (21-31); CHLORIDE 101 mmol/L (97-110); CREATININE 0.44 mg/dl (0.44-1.00); GLUCOSE 135 mg/dl (70-220); POTASSIUM 3.3 mmol/L (3.5-5.1); SODIUM 138 mmol/L (135-144)
[2017-06-07] MEDS: FERROUS SULFATE (EC) 325 MG TAB PO ×2 (08:38→20:29)
[2017-06-07] MEDS: PANTOPRAZOLE 40 MG INJ IV ×2 (08:38→20:48)
[2017-06-07] MEDS: DOCUSATE SODIUM 100 MG CAP PO ×2 (08:38→20:29)
[2017-06-07] MEDS: MEROPENEM 500MG/50 ML (PMX) 50 ML IVPB (08:38)
[2017-06-07] MEDS ORDERED: ACETAMINOPHEN 500 MG TAB PO (10:30)
[2017-06-07] MEDS: LEVOFLOXACIN 500MG/D5W (PMX) 100 ML IVPB (10:46)
[2017-06-07] MEDS: LORAZEPAM 2 MG INJ IV (13:25)
[2017-06-07 13:46] LABS: MAGNESIUM 1.9 mg/dl (1.7-2.5)
[2017-06-07] MEDS: DIGOXIN 500 MCG INJ IV (15:44)
[2017-06-07] MEDS: SOD FERRIC GLUC COMPLX 125 MG in SOD CHLORIDE 0.9% 100 ML IVPB (16:38)
[2017-06-07] MEDS: POTASSIUM CHLORIDE 100 ML IVPB ×2 (16:47→18:37)
[2017-06-07] MEDS: DIMENHYDRINATE 50 MG TAB PO (20:29)
[2017-06-08] MEDS: INSULIN ASPART [NOVOLOG] 3 ML PEN SC ×6 (01:00→20:23)
[2017-06-08] MEDS: METOCLOPRAMIDE 10 MG INJ IV ×3 (05:40→17:21)
[2017-06-08 08:03] LABS: ADD MAN DIFF? NO
[2017-06-08 08:06] LABS: WHITE BLOOD COUNT 9.8 10^3/ul (4.8-10.8)
[2017-06-08 08:06] LABS: BASOPHILS % 0.2 % (0.0-2.0); EOSINOPHILS # 0.1 10^3/ul (0.0-0.5); HEMATOCRIT 32.4 % (37.0-47.0); HEMOGLOBIN 9.5 g/dl (12.0-16.0); LYMPHOCYTES # 0.8 10^3/ul (0.8-2.9); LYMPHOCYTES % 8.6 % (15.0-51.0); MEAN CORPUSCULAR HEMOGLOBIN 25.3 pg (29.0-33.0); MEAN CORPUSCULAR HGB CONC 29.3 g/dl (32.0-37.0); MEAN CORPUSCULAR VOLUME 86.4 fl (82.0-101.0); MEAN PLATELET VOLUME 8.5 fl (7.4-10.4); MONOCYTE # 0.8 10^3/ul (0.3-0.9); MONOCYTES % 8.1 % (0.0-11.0); NEUTROPHILS % 81.6 % (39.0-77.0); PLATELET COUNT 283 10^3/UL (140-415); RED BLOOD COUNT 3.75 10^6/ul (4.20-5.40); RED CELL DISTRIBUTION WIDTH 17.5 % (11.5-14.5)
[2017-06-08 08:31] LABS: ANION GAP 10 (8-16); BLOOD UREA NITROGEN 5 mg/dl (7-20); CALCIUM 8.7 mg/dl (8.4-10.2); CARBON DIOXIDE 31 mmol/L (21-31); CHLORIDE 104 mmol/L (97-110); CREATININE 0.43 mg/dl (0.44-1.00); GLUCOSE 106 mg/dl (70-220); MAGNESIUM 1.8 mg/dl (1.7-2.5); POTASSIUM 3.6 mmol/L (3.5-5.1); SODIUM 141 mmol/L (135-144)
[2017-06-08] MEDS: DOCUSATE SODIUM 100 MG CAP PO ×2 (09:00→20:18)
[2017-06-08] MEDS: FERROUS SULFATE (EC) 325 MG TAB PO ×2 (09:00→20:18)
[2017-06-08] MEDS: DIMENHYDRINATE 50 MG TAB PO ×2 (09:00→20:18)
[2017-06-08] MEDS: PANTOPRAZOLE 40 MG INJ IV ×2 (09:33→20:18)
[2017-06-08] MEDS: D5W-0.45 NACL + KCL 30 MEQ 1,000 ML IV ×2 (11:27→16:01)
[2017-06-08] MEDS: DIGOXIN 500 MCG INJ IV (12:15)
[2017-06-08] MEDS: hydrALAzine 20 MG INJ IV (16:16)
[2017-06-08] MEDS: LORAZEPAM 2 MG INJ IV (17:13)
[2017-06-08] MEDS ORDERED: CLONIDINE 0.1 MG/24 HR PATCH TRANSDERM (17:30)
[2017-06-08] MEDS: CLONIDINE 0.1 MG/24 HR PATCH TRANSDERM (18:16)
[2017-06-09] MEDS: METOCLOPRAMIDE 10 MG INJ IV ×5 (00:43→23:54)
[2017-06-09] MEDS: INSULIN ASPART [NOVOLOG] 3 ML PEN SC ×6 (01:00→21:00)
[2017-06-09] MEDS: D5W-0.45 NACL + KCL 30 MEQ 1,000 ML IV ×2 (02:32→20:05)
[2017-06-09] MEDS: ONDANSETRON 4 MG INJ IV (11:10)
[2017-06-09] MEDS ORDERED: PROPOFOL 20 ML (12:27)
[2017-06-09] MEDS ORDERED: FENTAnyl 50 MCG/ML VIAL (12:27)
[2017-06-09] MEDS: FERROUS SULFATE (EC) 325 MG TAB PO ×2 (14:11→21:00)
[2017-06-09] MEDS: DIMENHYDRINATE 50 MG TAB PO ×2 (14:11→21:00)
[2017-06-09] MEDS: DOCUSATE SODIUM 100 MG CAP PO ×2 (14:11→21:00)
[2017-06-09] MEDS: PANTOPRAZOLE 40 MG INJ IV ×2 (14:11→21:03)
[2017-06-09] MEDS: DIGOXIN 500 MCG INJ IV (14:12)
[2017-06-09] MEDS ORDERED: DILTIAZEM 25 MG INJ IV (14:30)
[2017-06-09 15:34] LABS: ADD MAN DIFF? NO
[2017-06-09 15:35] LABS: WHITE BLOOD COUNT 13.2 10^3/ul (4.8-10.8)
[2017-06-09 15:35] LABS: ABNORMAL IP MESSAGE 1; BASOPHILS % 0.2 % (0.0-2.0); EOSINOPHILS % 0.2 % (0.0-7.0); HEMATOCRIT 32.7 % (37.0-47.0); HEMOGLOBIN 9.8 g/dl (12.0-16.0); LYMPHOCYTES # 0.5 10^3/ul (0.8-2.9); LYMPHOCYTES % 3.6 % (15.0-51.0); MEAN CORPUSCULAR HEMOGLOBIN 25.7 pg (29.0-33.0); MEAN CORPUSCULAR VOLUME 85.8 fl (82.0-101.0); MEAN PLATELET VOLUME 8.3 fl (7.4-10.4); MONOCYTE # 0.9 10^3/ul (0.3-0.9); MONOCYTES % 6.5 % (0.0-11.0); NEUTROPHIL # 11.8 10^3/ul (1.6-7.5); PLATELET COUNT 268 10^3/UL (140-415); RED BLOOD COUNT 3.81 10^6/ul (4.20-5.40); RED CELL DISTRIBUTION WIDTH 17.6 % (11.5-14.5)
[2017-06-09 15:45] LABS: POSITIVE DIFF @See below
[2017-06-09 15:57] LABS: ANION GAP 11 (8-16); BLOOD UREA NITROGEN 8 mg/dl (7-20); CALCIUM 8.7 mg/dl (8.4-10.2); CARBON DIOXIDE 30 mmol/L (21-31); CHLORIDE 103 mmol/L (97-110); CREATININE 0.45 mg/dl (0.44-1.00); GLUCOSE 121 mg/dl (70-220); POTASSIUM 3.7 mmol/L (3.5-5.1); SODIUM 140 mmol/L (135-144)
[2017-06-09 16:02] LABS: DIGOXIN 2.5 ng/ml (1.0-2.0)
[2017-06-09 16:05] LABS: INR 1.15; PROTIME 14.9 Sec (11.9-14.9); PT RATIO 1.2
[2017-06-09 16:06] LABS: PARTIAL THROMBOPLASTIN TIME 35.9 Sec (25.0-35.0)
[2017-06-09] MEDS: METOPROLOL 5 MG INJ IV ×2 (17:10→21:04)
[2017-06-09 17:28] LABS: THYROID STIMULATING HORMONE 0.952 MIU/L (0.465-4.680)
[2017-06-10] MEDS: METOPROLOL 5 MG INJ IV ×6 (00:47→20:13)
[2017-06-10] MEDS: INSULIN ASPART [NOVOLOG] 3 ML PEN SC ×6 (01:00→20:17)
[2017-06-10] MEDS: METOCLOPRAMIDE 10 MG INJ IV ×4 (05:14→23:29)
[2017-06-10] MEDS ORDERED: METOCLOPRAMIDE 10 MG INJ (07:00)
[2017-06-10] MEDS ORDERED: SUCCINYLCHOLINE CHLORIDE 100 MG/5 ML SYG IV (08:55)
[2017-06-10] MEDS ORDERED: GLYCOPYRROLATE 0.4 MG INJ (08:55)
[2017-06-10] MEDS ORDERED: NEOSTIGMINE 3 MG/3 ML SYRINGE (08:55)
[2017-06-10] MEDS ORDERED: MEPERIDINE 100 MG INJ (08:55)
[2017-06-10] MEDS ORDERED: PROPOFOL 20 ML (08:55)
[2017-06-10] MEDS ORDERED: ROCURONIUM 50 MG INJ (08:55)
[2017-06-10] MEDS ORDERED: LIDOCAINE 2% (SDV) 5 ML INJ (08:55)
[2017-06-10] MEDS: FERROUS SULFATE (EC) 325 MG TAB PO ×2 (09:00→20:14)
[2017-06-10] MEDS: DOCUSATE SODIUM 100 MG CAP PO ×2 (09:00→20:14)
[2017-06-10] MEDS: DIMENHYDRINATE 50 MG TAB PO ×2 (09:00→20:14)
[2017-06-10] MEDS ORDERED: CEFAZOLIN 1 GM INJ (10:03)
[2017-06-10] MEDS ORDERED: metroNIDAZOLE 500 MG/NS (PMX) 100 ML IVPB (10:03)
[2017-06-10] MEDS ORDERED: morphine 2 MG INJ IV (10:30)
[2017-06-10] MEDS ORDERED: OXYCODONE/ACETAMINOPHEN (5/325) TAB PO ×2 (11:00)
[2017-06-10] MEDS ORDERED: FENTAnyl 50 MCG/ML VIAL IV ×3 (11:00)
[2017-06-10] MEDS ORDERED: METOCLOPRAMIDE 10 MG INJ IV (11:00)
[2017-06-10] MEDS ORDERED: MIDAZOLAM 1 MG/ML 2 ML INJ IV (11:00)
[2017-06-10] MEDS ORDERED: LABETALOL HCL 20MG INJ IV (11:00)
[2017-06-10] MEDS ORDERED: DIPHENHYDRAMINE 50 MG INJ IV (11:00)
[2017-06-10] MEDS ORDERED: MEPERIDINE 25 MG INJ IV (11:00)
[2017-06-10] MEDS ORDERED: ONDANSETRON 4 MG INJ IV (11:00)
[2017-06-10] MEDS ORDERED: EPHEDrine SULFATE 50 MG/5 ML SYG IV (11:00)
[2017-06-10] MEDS ORDERED: HYDROmorphONE (0.2 MG/ML) 10ML SYG IV ×3 (11:00)
[2017-06-10] MEDS: hydrALAzine 20 MG INJ IV (11:04)
[2017-06-10] MEDS: D5W-0.45 NACL + KCL 30 MEQ 1,000 ML IV (12:41)
[2017-06-10] MEDS: PANTOPRAZOLE 40 MG INJ IV ×2 (12:55→20:58)
[2017-06-10] MEDS: morphine 2 MG INJ IV ×3 (14:11→23:55)
[2017-06-10] MEDS: CEFAZOLIN 1 GM/50 ML (PMX) 50 ML IVPB ×2 (14:14→21:02)
[2017-06-10] MEDS: metroNIDAZOLE 500 MG/NS (PMX) 100 ML IVPB ×2 (14:15→21:00)
[2017-06-11] MEDS: METOPROLOL 5 MG INJ IV ×6 (00:32→20:57)
[2017-06-11] MEDS: INSULIN ASPART [NOVOLOG] 3 ML PEN SC ×6 (00:38→20:59)
[2017-06-11] MEDS: D5W-0.45 NACL + KCL 30 MEQ 1,000 ML IV ×2 (03:11→16:16)
[2017-06-11] MEDS: morphine 2 MG INJ IV ×2 (03:16→13:17)
[2017-06-11] MEDS: ONDANSETRON 4 MG INJ IV (03:21)
[2017-06-11] MEDS: CEFAZOLIN 1 GM/50 ML (PMX) 50 ML IVPB (05:11)
[2017-06-11] MEDS: METOCLOPRAMIDE 10 MG INJ IV ×3 (05:12→17:30)
[2017-06-11] MEDS: metroNIDAZOLE 500 MG/NS (PMX) 100 ML IVPB (05:13)
[2017-06-11 07:27] LABS: ADD MAN DIFF? NO
[2017-06-11 07:31] LABS: WHITE BLOOD COUNT 21.7 10^3/ul (4.8-10.8)
[2017-06-11 07:31] LABS: ABNORMAL IP MESSAGE 1; BASOPHILS % 0.1 % (0.0-2.0); HEMATOCRIT 35.5 % (37.0-47.0); HEMOGLOBIN 10.5 g/dl (12.0-16.0); LYMPHOCYTES # 0.5 10^3/ul (0.8-2.9); LYMPHOCYTES % 2.3 % (15.0-51.0); MEAN CORPUSCULAR HEMOGLOBIN 25.7 pg (29.0-33.0); MEAN CORPUSCULAR HGB CONC 29.6 g/dl (32.0-37.0); MEAN CORPUSCULAR VOLUME 86.8 fl (82.0-101.0); MEAN PLATELET VOLUME 8.9 fl (7.4-10.4); MONOCYTE # 1.1 10^3/ul (0.3-0.9); MONOCYTES % 5.1 % (0.0-11.0); NEUTROPHIL # 19.8 10^3/ul (1.6-7.5); NEUTROPHILS % 91.6 % (39.0-77.0); PLATELET COUNT 190 10^3/UL (140-415); RED BLOOD COUNT 4.09 10^6/ul (4.20-5.40); RED CELL DISTRIBUTION WIDTH 17.5 % (11.5-14.5)
[2017-06-11 07:36] LABS: POSITIVE DIFF @See below
[2017-06-11 08:02] LABS: ANION GAP 10 (8-16); BLOOD UREA NITROGEN 16 mg/dl (7-20); CALCIUM 8.8 mg/dl (8.4-10.2); CARBON DIOXIDE 29 mmol/L (21-31); CHLORIDE 104 mmol/L (97-110); CREATININE 0.61 mg/dl (0.44-1.00); GLUCOSE 155 mg/dl (70-220); POTASSIUM 4.5 mmol/L (3.5-5.1); SODIUM 138 mmol/L (135-144)
[2017-06-11] MEDS: PANTOPRAZOLE 40 MG INJ IV ×2 (08:18→20:57)
[2017-06-11] MEDS: FERROUS SULFATE (EC) 325 MG TAB PO (09:32)
[2017-06-11] MEDS: DOCUSATE SODIUM 100 MG CAP PO (09:32)
[2017-06-11] MEDS: DIMENHYDRINATE 50 MG TAB PO ×2 (09:32→20:58)
[2017-06-11] MEDS: OXYCODONE/ACETAMINOPHEN (5/325) TAB PO (16:17)
[2017-06-11] MEDS: DOCUSATE SODIUM 10 MG/ML (10ML CUP) PO (20:58)
[2017-06-11] MEDS: FERROUS SULFATE 60 MG/ML 5ML CUP PO (20:58)
[2017-06-12] MEDS: morphine 2 MG INJ IV (00:04)
[2017-06-12] MEDS: METOCLOPRAMIDE 10 MG INJ IV ×5 (00:13→23:35)
[2017-06-12] MEDS: METOPROLOL 5 MG INJ IV (00:16)
[2017-06-12] MEDS: INSULIN ASPART [NOVOLOG] 3 ML PEN SC ×6 (01:00→22:18)
[2017-06-12] MEDS: LORAZEPAM 2 MG INJ IV (05:37)
[2017-06-12] MEDS: D5W-0.45 NACL + KCL 30 MEQ 1,000 ML IV (06:17)
[2017-06-12 08:32] LABS: ADD MAN DIFF? NO
[2017-06-12 08:39] LABS: WHITE BLOOD COUNT 22.6 10^3/ul (4.8-10.8)
[2017-06-12 08:39] LABS: ABNORMAL IP MESSAGE 1; BASOPHIL # 0.1 10^3/ul (0.0-0.1); BASOPHILS % 0.4 % (0.0-2.0); HEMATOCRIT 30.9 % (37.0-47.0); HEMOGLOBIN 9.4 g/dl (12.0-16.0); LYMPHOCYTES # 0.4 10^3/ul (0.8-2.9); LYMPHOCYTES % 1.6 % (15.0-51.0); MEAN CORPUSCULAR HGB CONC 30.4 g/dl (32.0-37.0); MEAN CORPUSCULAR VOLUME 85.6 fl (82.0-101.0); MONOCYTES % 4.4 % (0.0-11.0); NEUTROPHIL # 20.8 10^3/ul (1.6-7.5); NEUTROPHILS % 92.1 % (39.0-77.0); PLATELET COUNT 149 10^3/UL (140-415); RED BLOOD COUNT 3.61 10^6/ul (4.20-5.40); RED CELL DISTRIBUTION WIDTH 17.7 % (11.5-14.5)
[2017-06-12 08:44] LABS: POSITIVE DIFF @See below
[2017-06-12] MEDS: FERROUS SULFATE 60 MG/ML 5ML CUP PO ×2 (08:46→22:12)
[2017-06-12] MEDS: DIMENHYDRINATE 50 MG TAB PO ×2 (08:47→22:11)
[2017-06-12] MEDS: DOCUSATE SODIUM 10 MG/ML (10ML CUP) PO ×2 (08:47→22:12)
[2017-06-12] MEDS: METOPROLOL 25 MG TAB PEG (08:50)
[2017-06-12] MEDS: PANTOPRAZOLE 40 MG INJ IV ×2 (08:50→22:11)
[2017-06-12 08:57] LABS: ANION GAP 8 (8-16); BLOOD UREA NITROGEN 22 mg/dl (7-20); CALCIUM 8.9 mg/dl (8.4-10.2); CARBON DIOXIDE 26 mmol/L (21-31); CHLORIDE 104 mmol/L (97-110); CREATININE 0.54 mg/dl (0.44-1.00); GLUCOSE 133 mg/dl (70-220); MAGNESIUM 1.7 mg/dl (1.7-2.5); SODIUM 133 mmol/L (135-144)
[2017-06-12 09:19] LABS: POTASSIUM 5.2 mmol/L (3.5-5.1)
[2017-06-12] MEDS: DEXTROSE 5%-0.45% NACL 1,000 ML IV ×2 (11:51→22:19)
[2017-06-12] MEDS: METOPROLOL 50 MG TAB PEG ×3 (13:02→22:11)
[2017-06-12] MEDS: LORAZEPAM 0.5 MG TAB PO (15:22)
[2017-06-12 15:39] LABS: DIGOXIN 0.4 ng/ml (1.0-2.0)
[2017-06-12] MEDS: OXYCODONE/ACETAMINOPHEN (5/325) TAB PO (17:05)
[2017-06-13] MEDS: morphine 2 MG INJ IV (00:08)
[2017-06-13] MEDS: INSULIN ASPART [NOVOLOG] 3 ML PEN SC ×6 (00:42→21:00)
[2017-06-13 06:57] LABS: ANION GAP 12 (8-16); BLOOD UREA NITROGEN 21 mg/dl (7-20); CALCIUM 8.6 mg/dl (8.4-10.2); CARBON DIOXIDE 24 mmol/L (21-31); CHLORIDE 99 mmol/L (97-110); CREATININE 0.52 mg/dl (0.44-1.00); GLUCOSE 137 mg/dl (70-220); MAGNESIUM 1.8 mg/dl (1.7-2.5); POTASSIUM 4.3 mmol/L (3.5-5.1); SODIUM 131 mmol/L (135-144)
[2017-06-13] MEDS: METOCLOPRAMIDE 10 MG INJ IV ×4 (07:04→23:10)
[2017-06-13] MEDS: PANTOPRAZOLE 40 MG INJ IV ×2 (08:56→20:46)
[2017-06-13] MEDS: FERROUS SULFATE 60 MG/ML 5ML CUP PO ×2 (08:57→20:46)
[2017-06-13] MEDS: DIMENHYDRINATE 50 MG TAB PO ×2 (08:57→20:45)
[2017-06-13] MEDS: DOCUSATE SODIUM 10 MG/ML (10ML CUP) PO ×2 (08:57→20:46)
[2017-06-13] MEDS: METOPROLOL 50 MG TAB PEG ×4 (08:59→20:45)
[2017-06-13] MEDS: OXYCODONE/ACETAMINOPHEN (5/325) TAB PO (10:42)
[2017-06-13] MEDS: DEXTROSE 5%-0.45% NACL 1,000 ML IV ×2 (12:42→23:11)
[2017-06-13] MEDS: LORAZEPAM 0.5 MG TAB PO (18:35)
[2017-06-13] MEDS: BISACODYL 10 MG SUPP PR (20:40)
[2017-06-13] MEDS: ONDANSETRON 4 MG INJ IV (20:45)
[2017-06-13] MEDS: ACETAMINOPHEN 325 MG TAB PO (20:45)
[2017-06-14] MEDS: ONDANSETRON 4 MG INJ IV (00:55)
[2017-06-14] MEDS: INSULIN ASPART [NOVOLOG] 3 ML PEN SC ×6 (00:59→21:00)
[2017-06-14] MEDS: METOCLOPRAMIDE 10 MG INJ IV ×4 (05:10→23:52)
[2017-06-14 08:28] LABS: ANION GAP 13 (8-16); BLOOD UREA NITROGEN 19 mg/dl (7-20); CALCIUM 8.1 mg/dl (8.4-10.2); CARBON DIOXIDE 24 mmol/L (21-31); CHLORIDE 97 mmol/L (97-110); CREATININE 0.39 mg/dl (0.44-1.00); GLUCOSE 143 mg/dl (70-220); MAGNESIUM 1.8 mg/dl (1.7-2.5); POTASSIUM 4.5 mmol/L (3.5-5.1); SODIUM 129 mmol/L (135-144)
[2017-06-14] MEDS: DOCUSATE SODIUM 10 MG/ML (10ML CUP) PO ×2 (09:00→21:16)
[2017-06-14] MEDS: PANTOPRAZOLE 40 MG INJ IV ×2 (09:13→21:16)
[2017-06-14] MEDS: FERROUS SULFATE 60 MG/ML 5ML CUP PO ×2 (09:13→21:17)
[2017-06-14] MEDS: DIMENHYDRINATE 50 MG TAB PO ×2 (09:13→21:16)
[2017-06-14] MEDS: METOPROLOL 50 MG TAB PEG ×4 (09:14→21:16)
[2017-06-14 10:03] LABS: ABNORMAL IP MESSAGE 1; HEMOGLOBIN 9.5 g/dl (12.0-16.0); MEAN CORPUSCULAR HEMOGLOBIN 25.7 pg (29.0-33.0); MEAN CORPUSCULAR HGB CONC 29.7 g/dl (32.0-37.0); MEAN CORPUSCULAR VOLUME 86.7 fl (82.0-101.0); MEAN PLATELET VOLUME 9.6 fl (7.4-10.4); PLATELET COUNT 157 10^3/UL (140-415); RED BLOOD COUNT 3.69 10^6/ul (4.20-5.40); RED CELL DISTRIBUTION WIDTH 17.1 % (11.5-14.5)
[2017-06-14 10:03] LABS: WHITE BLOOD COUNT 12.3 10^3/ul (4.8-10.8)
[2017-06-14 10:08] LABS: ADD MAN DIFF? YES; POSITIVE DIFF @See below
[2017-06-14 10:49] LABS: ANISOCYTOSIS 2+ (0-0); BURR CELLS 2+ (0-0); LYMPHOCYTES #M 0.7 10^3/ul (0.8-2.9); LYMPHOCYTES % (M) 6 % (15-51); MICROCYTOSIS 1+ (0-0); MONOCYTE #M 0.6 10^3/ul (0.3-0.9); MONOCYTES % (M) 5 % (0-11); PLATELET ESTIMATE NORMAL; POIKILOCYTOSIS 2+ (0-0); POLYCHROMASIA 3+ (0-0); SEGMENTED NEUTROPHILS (M) % 89 % (39-77); SMUDGE%M 3 % (0-0)
[2017-06-14 12:25] LABS: PHOSPHORUS 2.6 mg/dl (2.5-4.9)
[2017-06-14] MEDS: BALSAM PERU/CASTOR OIL 60 GM TUBE TOP ×2 (14:00→21:16)
[2017-06-14] MEDS ORDERED: BALSAM PERU/CASTOR OIL 60 GM TUBE TOP (21:00)
[2017-06-14] MEDS: OXYCODONE/ACETAMINOPHEN (5/325) TAB PO (23:52)
[2017-06-15] MEDS: INSULIN ASPART [NOVOLOG] 3 ML PEN SC ×6 (01:00→21:00)
[2017-06-15] MEDS: METOCLOPRAMIDE 10 MG INJ IV ×3 (05:38→17:21)
[2017-06-15 06:25] LABS: PHOSPHORUS 2.9 mg/dl (2.5-4.9)
[2017-06-15 06:25] LABS: MAGNESIUM 1.8 mg/dl (1.7-2.5)
[2017-06-15 06:26] LABS: ANION GAP 7 (8-16); BLOOD UREA NITROGEN 19 mg/dl (7-20); CALCIUM 8.5 mg/dl (8.4-10.2); CARBON DIOXIDE 27 mmol/L (21-31); CHLORIDE 103 mmol/L (97-110); CREATININE 0.49 mg/dl (0.44-1.00); GLUCOSE 123 mg/dl (70-220); POTASSIUM 4.3 mmol/L (3.5-5.1); SODIUM 133 mmol/L (135-144)
[2017-06-15] MEDS: DOCUSATE SODIUM 10 MG/ML (10ML CUP) PO ×2 (08:43→21:09)
[2017-06-15] MEDS: FERROUS SULFATE 60 MG/ML 5ML CUP PO ×2 (08:43→21:09)
[2017-06-15] MEDS: DIMENHYDRINATE 50 MG TAB PO ×2 (08:44→21:08)
[2017-06-15] MEDS: BALSAM PERU/CASTOR OIL 60 GM TUBE TOP ×2 (08:44→21:10)
[2017-06-15] MEDS: METOPROLOL 50 MG TAB PEG ×4 (08:44→21:09)
[2017-06-15] MEDS: PANTOPRAZOLE 40 MG INJ IV ×2 (08:44→21:09)
[2017-06-15] MEDS: CLONIDINE 0.1 MG/24 HR PATCH TRANSDERM (17:21)
[2017-06-16] MEDS: METOCLOPRAMIDE 10 MG INJ IV ×4 (00:54→18:02)
[2017-06-16] MEDS: INSULIN ASPART [NOVOLOG] 3 ML PEN SC ×6 (00:59→21:00)
[2017-06-16] MEDS: OXYCODONE/ACETAMINOPHEN (5/325) TAB PO ×2 (03:36→15:03)
[2017-06-16 05:49] LABS: ADD MAN DIFF? NO
[2017-06-16 05:54] LABS: WHITE BLOOD COUNT 8.9 10^3/ul (4.8-10.8)
[2017-06-16 05:54] LABS: ABNORMAL IP MESSAGE 1; BASOPHILS % 0.1 % (0.0-2.0); EOSINOPHILS % 0.4 % (0.0-7.0); HEMATOCRIT 30.1 % (37.0-47.0); HEMOGLOBIN 9.2 g/dl (12.0-16.0); LYMPHOCYTES # 0.6 10^3/ul (0.8-2.9); MEAN CORPUSCULAR HEMOGLOBIN 25.6 pg (29.0-33.0); MEAN CORPUSCULAR HGB CONC 30.6 g/dl (32.0-37.0); MEAN CORPUSCULAR VOLUME 83.6 fl (82.0-101.0); MONOCYTE # 0.8 10^3/ul (0.3-0.9); MONOCYTES % 9.3 % (0.0-11.0); NEUTROPHIL # 7.3 10^3/ul (1.6-7.5); NEUTROPHILS % 82.6 % (39.0-77.0); PLATELET COUNT 175 10^3/UL (140-415); RED CELL DISTRIBUTION WIDTH 17.2 % (11.5-14.5)
[2017-06-16 06:20] LABS: POSITIVE DIFF @See below
[2017-06-16 06:21] LABS: LYMPHOCYTES % 6.6 % (15.0-51.0)
[2017-06-16 06:26] LABS: ANION GAP 8 (8-16); BLOOD UREA NITROGEN 20 mg/dl (7-20); CALCIUM 8.2 mg/dl (8.4-10.2); CARBON DIOXIDE 31 mmol/L (21-31); CHLORIDE 101 mmol/L (97-110); CREATININE 0.45 mg/dl (0.44-1.00); GLUCOSE 111 mg/dl (70-220); MAGNESIUM 1.7 mg/dl (1.7-2.5); PHOSPHORUS 2.6 mg/dl (2.5-4.9); POTASSIUM 4.2 mmol/L (3.5-5.1); SODIUM 136 mmol/L (135-144)
[2017-06-16] MEDS: FERROUS SULFATE 60 MG/ML 5ML CUP PO ×2 (09:51→21:29)
[2017-06-16] MEDS: DOCUSATE SODIUM 10 MG/ML (10ML CUP) PO ×2 (09:51→21:29)
[2017-06-16] MEDS: DIMENHYDRINATE 50 MG TAB PO ×2 (09:51→21:28)
[2017-06-16] MEDS: METOPROLOL 50 MG TAB PEG ×3 (09:52→21:28)
[2017-06-16] MEDS: PANTOPRAZOLE 40 MG INJ IV ×2 (09:52→21:29)
[2017-06-16] MEDS: BALSAM PERU/CASTOR OIL 60 GM TUBE TOP ×2 (09:53→21:32)
[2017-06-16] MEDS: DILTIAZEM 30 MG TAB NGT ×2 (17:06→21:27)
[2017-06-17] MEDS: METOCLOPRAMIDE 10 MG INJ IV ×5 (00:20→23:58)
[2017-06-17] MEDS: INSULIN ASPART [NOVOLOG] 3 ML PEN SC ×6 (00:25→23:58)
[2017-06-17] MEDS: OXYCODONE/ACETAMINOPHEN (5/325) TAB PO ×3 (00:51→22:18)
[2017-06-17] MEDS: LORAZEPAM 2 MG INJ IV (01:03)
[2017-06-17] MEDS: METOPROLOL 50 MG TAB PEG ×3 (05:28→21:37)
[2017-06-17] MEDS: DILTIAZEM 30 MG TAB NGT ×3 (05:29→21:37)
[2017-06-17 06:58] LABS: ANION GAP 8 (8-16); BLOOD UREA NITROGEN 18 mg/dl (7-20); CARBON DIOXIDE 33 mmol/L (21-31); CHLORIDE 99 mmol/L (97-110); GLUCOSE 118 mg/dl (70-220); MAGNESIUM 1.6 mg/dl (1.7-2.5); PHOSPHORUS 2.7 mg/dl (2.5-4.9); POTASSIUM 3.7 mmol/L (3.5-5.1); SODIUM 136 mmol/L (135-144)
[2017-06-17] MEDS: DOCUSATE SODIUM 10 MG/ML (10ML CUP) PO ×2 (08:58→21:37)
[2017-06-17] MEDS: ASPIRIN 325 MG TAB PO (08:58)
[2017-06-17] MEDS: PANTOPRAZOLE 40 MG INJ IV ×2 (08:58→21:37)
[2017-06-17] MEDS: FERROUS SULFATE 60 MG/ML 5ML CUP PO ×2 (08:58→21:37)
[2017-06-17] MEDS: DIMENHYDRINATE 50 MG TAB PO ×2 (08:58→21:36)
[2017-06-17] MEDS: BALSAM PERU/CASTOR OIL 60 GM TUBE TOP ×2 (09:01→21:38)
[2017-06-17] MEDS: ACETAMINOPHEN 325 MG TAB PO (11:01)
[2017-06-17] MEDS: MAGNESIUM SULFATE 2 GM/50 ML 50 ML IVPB (11:01)
[2017-06-18] MEDS: METOCLOPRAMIDE 10 MG INJ IV ×3 (05:47→18:12)
[2017-06-18] MEDS: DILTIAZEM 30 MG TAB NGT (05:47)
[2017-06-18] MEDS: METOPROLOL 50 MG TAB PEG ×3 (05:47→22:14)
[2017-06-18] MEDS: INSULIN ASPART [NOVOLOG] 3 ML PEN SC ×3 (05:48→18:00)
[2017-06-18 07:21] LABS: ANION GAP 10 (8-16); BLOOD UREA NITROGEN 17 mg/dl (7-20); CALCIUM 7.9 mg/dl (8.4-10.2); CARBON DIOXIDE 32 mmol/L (21-31); CHLORIDE 95 mmol/L (97-110); CREATININE 0.35 mg/dl (0.44-1.00); GLUCOSE 123 mg/dl (70-220); MAGNESIUM 1.8 mg/dl (1.7-2.5); PHOSPHORUS 2.8 mg/dl (2.5-4.9); POTASSIUM 3.4 mmol/L (3.5-5.1); SODIUM 134 mmol/L (135-144)
[2017-06-18] MEDS: PANTOPRAZOLE 40 MG INJ IV ×2 (08:49→20:23)
[2017-06-18] MEDS: ASPIRIN 325 MG TAB PO (08:49)
[2017-06-18] MEDS: DIMENHYDRINATE 50 MG TAB PO ×2 (08:49→20:23)
[2017-06-18] MEDS: DOCUSATE SODIUM 10 MG/ML (10ML CUP) PO ×2 (08:49→20:23)
[2017-06-18] MEDS: FERROUS SULFATE 60 MG/ML 5ML CUP PO ×2 (08:49→20:23)
[2017-06-18] MEDS: BALSAM PERU/CASTOR OIL 60 GM TUBE TOP ×2 (08:49→20:24)
[2017-06-18] MEDS: SENNA TAB PO (13:56)
[2017-06-18] MEDS: DILTIAZEM 60 MG TAB NGT ×2 (13:57→22:14)
[2017-06-18] MEDS ORDERED: BISACODYL 10 MG SUPP PR (15:30)
[2017-06-18] MEDS: BISACODYL 10 MG SUPP PR (15:52)
[2017-06-18] MEDS: ONDANSETRON 4 MG INJ IV (20:37)
[2017-06-18] MEDS: OXYCODONE/ACETAMINOPHEN (5/325) TAB PO (20:37)
[2017-06-18] MEDS ORDERED: BALSAM PERU/CASTOR OIL 60 GM TUBE TOP (21:00)
[2017-06-19] MEDS: METOCLOPRAMIDE 10 MG INJ IV ×5 (01:24→23:03)
[2017-06-19] MEDS: ACCU-CHEK XX (02:00)
[2017-06-19 05:19] LABS: WHITE BLOOD COUNT 12.2 10^3/ul (4.8-10.8)
[2017-06-19 05:19] LABS: ABNORMAL IP MESSAGE 1; ADD MAN DIFF? NO; BASOPHILS % 0.2 % (0.0-2.0); EOSINOPHILS # 0.1 10^3/ul (0.0-0.5); EOSINOPHILS % 0.6 % (0.0-7.0); HEMATOCRIT 27.8 % (37.0-47.0); HEMOGLOBIN 8.4 g/dl (12.0-16.0); LYMPHOCYTES # 0.6 10^3/ul (0.8-2.9); LYMPHOCYTES % 4.5 % (15.0-51.0); MEAN CORPUSCULAR HEMOGLOBIN 25.6 pg (29.0-33.0); MEAN CORPUSCULAR HGB CONC 30.2 g/dl (32.0-37.0); MEAN CORPUSCULAR VOLUME 84.8 fl (82.0-101.0); MEAN PLATELET VOLUME 9.1 fl (7.4-10.4); MONOCYTE # 0.9 10^3/ul (0.3-0.9); MONOCYTES % 7.7 % (0.0-11.0); NEUTROPHIL # 10.5 10^3/ul (1.6-7.5); NEUTROPHILS % 86.1 % (39.0-77.0); PLATELET COUNT 211 10^3/UL (140-415); RED BLOOD COUNT 3.28 10^6/ul (4.20-5.40); RED CELL DISTRIBUTION WIDTH 18.1 % (11.5-14.5)
[2017-06-19 05:31] LABS: POSITIVE DIFF @See below
[2017-06-19 05:45] LABS: ANION GAP 11 (8-16); BLOOD UREA NITROGEN 17 mg/dl (7-20); CALCIUM 7.9 mg/dl (8.4-10.2); CARBON DIOXIDE 33 mmol/L (21-31); CHLORIDE 93 mmol/L (97-110); CREATININE 0.38 mg/dl (0.44-1.00); GLUCOSE 120 mg/dl (70-220); POTASSIUM 3.5 mmol/L (3.5-5.1); SODIUM 133 mmol/L (135-144)
[2017-06-19] MEDS: DILTIAZEM 60 MG TAB NGT ×3 (06:10→23:03)
[2017-06-19] MEDS: METOPROLOL 50 MG TAB PEG ×3 (06:10→20:22)
[2017-06-19] MEDS: INSULIN ASPART [NOVOLOG] 3 ML PEN SC ×5 (07:50→20:37)
[2017-06-19] MEDS: ASPIRIN 325 MG TAB PO (09:50)
[2017-06-19] MEDS: PANTOPRAZOLE 40 MG INJ IV ×2 (09:50→20:20)
[2017-06-19] MEDS: DOCUSATE SODIUM 10 MG/ML (10ML CUP) PO ×2 (09:51→20:20)
[2017-06-19] MEDS: FERROUS SULFATE 60 MG/ML 5ML CUP PO ×2 (09:51→20:20)
[2017-06-19] MEDS: DIMENHYDRINATE 50 MG TAB PO ×2 (11:31→20:20)
[2017-06-19] MEDS: BALSAM PERU/CASTOR OIL 60 GM TUBE TOP ×2 (11:32→20:39)
[2017-06-19] MEDS: SOD CHLORIDE 0.9% 1,000 ML IV ×2 (14:39→23:30)
[2017-06-19] MEDS ORDERED: DIPHENHYDRAMINE 50 MG INJ IV (15:30)
[2017-06-19] MEDS ORDERED: METHYLPREDNISOLONE 125 MG INJ IV (15:30)
[2017-06-19] MEDS ORDERED: MEPERIDINE 50 MG INJ IV (15:30)
[2017-06-19] MEDS: SOD CHLORIDE 0.9% IV ×3 (17:30→18:51)
[2017-06-19] MEDS: FLUOROURACIL IV (17:30)
[2017-06-19] MEDS: SOD FERRIC GLUC COMPLX 125 MG in SOD CHLORIDE 0.9% 100 ML IVPB (18:11)
[2017-06-19] MEDS: ONDANSETRON INJ 16 MG, DEXAMETHASONE 4 MG/ML 10 MG in SOD CHLORIDE 0.9% 50 ML IV (18:25)
[2017-06-19] MEDS: TRASTUZUMAB IV (18:30)
[2017-06-19] MEDS: LEUCOVORIN CALCIUM IV (18:51)
[2017-06-20] MEDS: SOD CHLORIDE 0.9% 1,000 ML IV ×4 (01:13→21:25)
[2017-06-20] MEDS: ACCU-CHEK XX (02:00)
[2017-06-20] MEDS: METOPROLOL 25 MG TAB JT (05:02)
[2017-06-20] MEDS: METOCLOPRAMIDE 10 MG INJ IV ×3 (06:15→17:22)
[2017-06-20] MEDS: DILTIAZEM 60 MG TAB NGT ×3 (06:17→21:24)
[2017-06-20] MEDS: METOPROLOL 50 MG TAB PEG (06:17)
[2017-06-20] MEDS: INSULIN ASPART [NOVOLOG] 3 ML PEN SC ×4 (07:50→21:00)
[2017-06-20] MEDS: DOCUSATE SODIUM 10 MG/ML (10ML CUP) PO ×2 (08:47→21:25)
[2017-06-20] MEDS: PANTOPRAZOLE 40 MG INJ IV ×2 (08:47→21:25)
[2017-06-20] MEDS: FERROUS SULFATE 60 MG/ML 5ML CUP PO ×2 (08:47→21:25)
[2017-06-20] MEDS: ASPIRIN 325 MG TAB PO (08:47)
[2017-06-20] MEDS: DIMENHYDRINATE 50 MG TAB PO ×2 (08:47→21:23)
[2017-06-20] MEDS: BALSAM PERU/CASTOR OIL 60 GM TUBE TOP ×2 (08:48→21:00)
[2017-06-20] MEDS: ONDANSETRON INJ 16 MG, DEXAMETHASONE 10 MG/ML 10 MG in DEXTROSE 5% 50 ML IVPB ×2 (09:00→12:17)
[2017-06-20] MEDS: SOD CHLORIDE 0.9% IV ×3 (12:55→15:58)
[2017-06-20] MEDS: LEUCOVORIN CALCIUM IV (12:55)
[2017-06-20] MEDS: FLUOROURACIL IV (14:26)
[2017-06-20] MEDS: METOPROLOL 100 MG TAB PEG ×2 (14:35→21:24)
[2017-06-20] MEDS: TRASTUZUMAB IV (15:58)
[2017-06-20] MEDS: SOD FERRIC GLUC COMPLX 125 MG in SOD CHLORIDE 0.9% 100 ML IVPB (17:22)
[2017-06-20] MEDS: LORAZEPAM 2 MG INJ IV (21:15)
[2017-06-21] MEDS: METOCLOPRAMIDE 10 MG INJ IV ×5 (00:23→23:58)
[2017-06-21] MEDS: ACCU-CHEK XX (02:00)
[2017-06-21] MEDS: morphine 2 MG INJ IV (04:23)
[2017-06-21] MEDS: DILTIAZEM 60 MG TAB NGT ×3 (05:20→22:45)
[2017-06-21] MEDS: METOPROLOL 100 MG TAB PEG ×3 (05:20→22:04)
[2017-06-21] MEDS: INSULIN ASPART [NOVOLOG] 3 ML PEN SC ×4 (07:50→21:00)
[2017-06-21] MEDS: ASPIRIN 325 MG TAB PO (08:38)
[2017-06-21] MEDS: FERROUS SULFATE 60 MG/ML 5ML CUP PO ×2 (08:38→21:57)
[2017-06-21] MEDS: PANTOPRAZOLE 40 MG INJ IV ×2 (08:38→21:57)
[2017-06-21] MEDS: DIMENHYDRINATE 50 MG TAB PO ×2 (08:38→21:57)
[2017-06-21] MEDS: DOCUSATE SODIUM 10 MG/ML (10ML CUP) PO ×2 (08:38→21:57)
[2017-06-21] MEDS: BALSAM PERU/CASTOR OIL 60 GM TUBE TOP ×2 (08:39→21:58)
[2017-06-21] MEDS: LORAZEPAM 2 MG INJ IV ×2 (08:39→23:58)
[2017-06-21] MEDS: SOD CHLORIDE 0.9% 1,000 ML IV ×2 (09:00→18:38)
[2017-06-21] MEDS: SOD FERRIC GLUC COMPLX 125 MG in SOD CHLORIDE 0.9% 100 ML IVPB (18:38)
[2017-06-22] MEDS: ACCU-CHEK XX (02:00)
[2017-06-22 05:47] LABS: ADD MAN DIFF? NO
[2017-06-22] MEDS: SOD CHLORIDE 0.9% 1,000 ML IV (05:48)
[2017-06-22 05:55] LABS: WHITE BLOOD COUNT 18.6 10^3/ul (4.8-10.8)
[2017-06-22 05:55] LABS: ABNORMAL IP MESSAGE 1; BASOPHILS % 0.1 % (0.0-2.0); EOSINOPHILS # 0.1 10^3/ul (0.0-0.5); EOSINOPHILS % 0.5 % (0.0-7.0); HEMATOCRIT 31.2 % (37.0-47.0); HEMOGLOBIN 9.1 g/dl (12.0-16.0); LYMPHOCYTES # 0.5 10^3/ul (0.8-2.9); LYMPHOCYTES % 2.7 % (15.0-51.0); MEAN CORPUSCULAR HGB CONC 29.2 g/dl (32.0-37.0); MEAN CORPUSCULAR VOLUME 89.1 fl (82.0-101.0); MEAN PLATELET VOLUME 8.8 fl (7.4-10.4); MONOCYTE # 0.9 10^3/ul (0.3-0.9); MONOCYTES % 4.9 % (0.0-11.0); NEUTROPHILS % 91.1 % (39.0-77.0); PLATELET COUNT 368 10^3/UL (140-415); RED CELL DISTRIBUTION WIDTH 18.4 % (11.5-14.5)
[2017-06-22 06:00] LABS: POSITIVE DIFF @See below
[2017-06-22 06:15] LABS: ALANINE AMINOTRANSFERASE 23 IU/L (13-69); ALBUMIN 2.2 g/dl (3.3-4.9); ALBUMIN/GLOBULIN RATIO 0.81; ALKALINE PHOSPHATASE 73 IU/L (42-121); ANION GAP 7 (8-16); ASPARTATE AMINO TRANSFERASE 18 IU/L (15-46); BILIRUBIN,INDIRECT 0.1 mg/dl (0-1.1); BILIRUBIN,TOTAL 0.1 mg/dl (0.2-1.3); BLOOD UREA NITROGEN 26 mg/dl (7-20); CALCIUM 8.3 mg/dl (8.4-10.2); CARBON DIOXIDE 33 mmol/L (21-31); CHLORIDE 104 mmol/L (97-110); CREATININE 0.44 mg/dl (0.44-1.00); GLUCOSE 112 mg/dl (70-220); MAGNESIUM 1.8 mg/dl (1.7-2.5); POTASSIUM 4.1 mmol/L (3.5-5.1); SODIUM 140 mmol/L (135-144); TOTAL PROTEIN 4.9 g/dl (6.1-8.1)
[2017-06-22] MEDS: METOPROLOL 100 MG TAB PEG ×3 (06:28→22:03)
[2017-06-22] MEDS: METOCLOPRAMIDE 10 MG INJ IV ×3 (06:28→18:32)
[2017-06-22] MEDS: DILTIAZEM 60 MG TAB NGT ×3 (06:29→22:04)
[2017-06-22] MEDS: INSULIN ASPART [NOVOLOG] 3 ML PEN SC ×4 (07:50→21:00)
[2017-06-22] MEDS: PANTOPRAZOLE 40 MG INJ IV ×2 (09:05→21:07)
[2017-06-22] MEDS: DOCUSATE SODIUM 10 MG/ML (10ML CUP) PO ×2 (09:07→21:07)
[2017-06-22] MEDS: ASPIRIN 325 MG TAB PO (09:07)
[2017-06-22] MEDS: FERROUS SULFATE 60 MG/ML 5ML CUP PO ×2 (09:07→21:07)
[2017-06-22] MEDS: BALSAM PERU/CASTOR OIL 60 GM TUBE TOP ×2 (09:07→21:08)
[2017-06-22] MEDS: DIMENHYDRINATE 50 MG TAB PO ×2 (09:07→21:00)
[2017-06-22] MEDS: FUROSEMIDE 40 MG INJ IV (15:55)
[2017-06-22] MEDS: CLONIDINE 0.1 MG/24 HR PATCH TRANSDERM (18:32)
[2017-06-23] MEDS: METOCLOPRAMIDE 10 MG INJ IV ×5 (00:34→23:47)
[2017-06-23] MEDS: ACCU-CHEK XX (02:00)
[2017-06-23] MEDS: DILTIAZEM 60 MG TAB NGT ×3 (05:55→21:06)
[2017-06-23] MEDS: METOPROLOL 100 MG TAB PEG ×3 (05:56→21:06)
[2017-06-23] MEDS: DOCUSATE SODIUM 10 MG/ML (10ML CUP) PO ×2 (09:00→21:00)
[2017-06-23] MEDS: PANTOPRAZOLE 40 MG INJ IV ×2 (09:30→21:04)
[2017-06-23] MEDS: INSULIN ASPART [NOVOLOG] 3 ML PEN SC ×4 (09:30→21:00)
[2017-06-23] MEDS: ASPIRIN 325 MG TAB PO (09:30)
[2017-06-23] MEDS: FERROUS SULFATE 60 MG/ML 5ML CUP PO ×2 (09:30→21:04)
[2017-06-23] MEDS: BALSAM PERU/CASTOR OIL 60 GM TUBE TOP ×2 (09:31→21:05)
[2017-06-23] MEDS: DIMENHYDRINATE 50 MG TAB PO ×2 (09:59→21:04)
[2017-06-23] MEDS: morphine 2 MG INJ IV (21:59)
[2017-06-24] MEDS: ACCU-CHEK XX (02:00)
[2017-06-24] MEDS: AMIODARONE 150MG/D5W BOLUS 100 ML IV (03:55)
[2017-06-24] MEDS: DILTIAZEM 60 MG TAB NGT ×3 (04:17→20:51)
[2017-06-24] MEDS: METOCLOPRAMIDE 10 MG INJ IV ×3 (04:17→17:44)
[2017-06-24] MEDS: METOPROLOL 100 MG TAB PEG ×3 (04:32→20:51)
[2017-06-24] MEDS: AMIODARONE 900 MG in DEXTROSE 5% 482 ML IV ×2 (04:35→10:48)
[2017-06-24] MEDS: ASPIRIN 325 MG TAB PO (09:46)
[2017-06-24] MEDS: FERROUS SULFATE 60 MG/ML 5ML CUP PO ×2 (09:46→20:46)
[2017-06-24] MEDS: PANTOPRAZOLE 40 MG INJ IV ×2 (09:46→20:46)
[2017-06-24] MEDS: BALSAM PERU/CASTOR OIL 60 GM TUBE TOP ×2 (09:47→20:47)
[2017-06-24] MEDS: DOCUSATE SODIUM 10 MG/ML (10ML CUP) PO ×2 (09:47→20:46)
[2017-06-24] MEDS: DIMENHYDRINATE 50 MG TAB PO ×2 (09:53→20:46)
[2017-06-24] MEDS: INSULIN ASPART [NOVOLOG] 3 ML PEN SC ×4 (10:06→20:46)
[2017-06-24] MEDS: OXYCODONE/ACETAMINOPHEN (5/325) TAB PO (12:04)
[2017-06-24] MEDS: COLLAGENASE 5 GM (UD JAR) TOP (14:46)
[2017-06-25] MEDS: METOCLOPRAMIDE 10 MG INJ IV ×4 (00:09→17:45)
[2017-06-25] MEDS: ACCU-CHEK XX (02:00)
[2017-06-25] MEDS: morphine 2 MG INJ IV (02:37)
[2017-06-25] MEDS: DILTIAZEM-D5W 125MG/125ML DRIP 125 ML IV (06:22)
[2017-06-25] MEDS: DILTIAZEM 60 MG TAB NGT ×3 (06:22→21:49)
[2017-06-25] MEDS: METOPROLOL 100 MG TAB PEG ×3 (06:22→21:49)
[2017-06-25] MEDS: DOCUSATE SODIUM 10 MG/ML (10ML CUP) PO ×2 (09:00→21:48)
[2017-06-25] MEDS: BALSAM PERU/CASTOR OIL 60 GM TUBE TOP ×2 (09:00→21:50)
[2017-06-25] MEDS: COLLAGENASE 5 GM (UD JAR) TOP (09:00)
[2017-06-25] MEDS: DIMENHYDRINATE 50 MG TAB PO ×2 (09:13→21:48)
[2017-06-25] MEDS: ASPIRIN 325 MG TAB PO (09:13)
[2017-06-25] MEDS: FERROUS SULFATE 60 MG/ML 5ML CUP PO ×2 (09:13→21:48)
[2017-06-25] MEDS: INSULIN ASPART [NOVOLOG] 3 ML PEN SC ×4 (09:17→21:52)
[2017-06-25] MEDS: PANTOPRAZOLE 40 MG INJ IV ×2 (12:27→21:48)
[2017-06-25] MEDS: DIGOXIN 500 MCG INJ IV ×2 (16:30→21:49)
[2017-06-25] MEDS: LORAZEPAM 2 MG INJ IV (16:31)
[2017-06-26] MEDS: METOCLOPRAMIDE 10 MG INJ IV ×4 (00:03→17:17)
[2017-06-26] MEDS: ACCU-CHEK XX (02:00)
[2017-06-26] MEDS: DILTIAZEM 60 MG TAB NGT ×3 (06:43→20:39)
[2017-06-26] MEDS: METOPROLOL 100 MG TAB PEG ×3 (06:44→20:41)
[2017-06-26 07:16] LABS: ANION GAP 11 (8-16); BLOOD UREA NITROGEN 35 mg/dl (7-20); CALCIUM 7.9 mg/dl (8.4-10.2); CARBON DIOXIDE 34 mmol/L (21-31); CHLORIDE 92 mmol/L (97-110); CREATININE 0.52 mg/dl (0.44-1.00); GLUCOSE 137 mg/dl (70-220); MAGNESIUM 1.8 mg/dl (1.7-2.5); POTASSIUM 3.5 mmol/L (3.5-5.1); SODIUM 133 mmol/L (135-144)
[2017-06-26] MEDS: COLLAGENASE 5 GM (UD JAR) TOP (08:56)
[2017-06-26] MEDS: DOCUSATE SODIUM 10 MG/ML (10ML CUP) PO ×2 (08:56→20:37)
[2017-06-26] MEDS: DIMENHYDRINATE 50 MG TAB PO ×2 (08:56→20:38)
[2017-06-26] MEDS: PANTOPRAZOLE 40 MG INJ IV ×2 (08:56→20:37)
[2017-06-26] MEDS: BALSAM PERU/CASTOR OIL 60 GM TUBE TOP ×2 (08:56→20:38)
[2017-06-26] MEDS: ASPIRIN 325 MG TAB PO (08:56)
[2017-06-26] MEDS: FERROUS SULFATE 60 MG/ML 5ML CUP PO ×2 (08:56→20:38)
[2017-06-26] MEDS: INSULIN ASPART [NOVOLOG] 3 ML PEN SC ×4 (08:59→20:44)
[2017-06-27] MEDS: ACCU-CHEK XX (00:01)
[2017-06-27] MEDS: OXYCODONE/ACETAMINOPHEN (5/325) TAB PO (00:02)
[2017-06-27] MEDS: METOCLOPRAMIDE 10 MG INJ IV ×5 (00:03→17:58)
[2017-06-27] MEDS: DILTIAZEM 60 MG TAB NGT ×3 (05:13→21:57)
[2017-06-27] MEDS: METOPROLOL 100 MG TAB PEG ×3 (05:13→21:57)
[2017-06-27] MEDS: DIMENHYDRINATE 50 MG TAB PO ×2 (08:52→20:50)
[2017-06-27] MEDS: INSULIN ASPART [NOVOLOG] 3 ML PEN SC ×4 (08:52→20:50)
[2017-06-27] MEDS: DOCUSATE SODIUM 10 MG/ML (10ML CUP) PO ×2 (08:53→20:50)
[2017-06-27] MEDS: ASPIRIN 325 MG TAB PO (08:53)
[2017-06-27] MEDS: FERROUS SULFATE 60 MG/ML 5ML CUP PO ×2 (08:53→20:50)
[2017-06-27] MEDS: COLLAGENASE 5 GM (UD JAR) TOP (08:57)
[2017-06-27] MEDS: PANTOPRAZOLE 40 MG INJ IV ×2 (08:57→20:49)
[2017-06-27] MEDS: BALSAM PERU/CASTOR OIL 60 GM TUBE TOP ×2 (08:57→20:52)
[2017-06-28] MEDS: METOCLOPRAMIDE 10 MG INJ IV ×4 (00:14→17:18)
[2017-06-28] MEDS: ACCU-CHEK XX (01:53)
[2017-06-28] MEDS: DILTIAZEM 60 MG TAB NGT ×3 (05:39→21:54)
[2017-06-28] MEDS: METOPROLOL 100 MG TAB PEG ×3 (05:39→21:54)
[2017-06-28] MEDS: INSULIN ASPART [NOVOLOG] 3 ML PEN SC ×4 (07:53→21:00)
[2017-06-28] MEDS: FERROUS SULFATE 60 MG/ML 5ML CUP PO ×2 (08:20→21:18)
[2017-06-28] MEDS: PANTOPRAZOLE 40 MG INJ IV ×2 (08:21→21:18)
[2017-06-28] MEDS: DIMENHYDRINATE 50 MG TAB PO ×2 (08:21→21:18)
[2017-06-28] MEDS: DOCUSATE SODIUM 10 MG/ML (10ML CUP) PO ×2 (08:21→21:18)
[2017-06-28] MEDS: ASPIRIN 325 MG TAB PO (08:21)
[2017-06-28] MEDS: COLLAGENASE 5 GM (UD JAR) TOP (08:21)
[2017-06-28] MEDS: BALSAM PERU/CASTOR OIL 60 GM TUBE TOP ×2 (08:22→21:19)
[2017-06-28] MEDS: DIGOXIN 500 MCG INJ IV (13:33)
[2017-06-29] MEDS: METOCLOPRAMIDE 10 MG INJ IV ×3 (00:21→12:24)
[2017-06-29] MEDS: ACCU-CHEK XX (02:00)
[2017-06-29] MEDS: METOPROLOL 100 MG TAB PEG (05:40)
[2017-06-29] MEDS: DILTIAZEM 60 MG TAB NGT (05:41)
[2017-06-29] MEDS: DOCUSATE SODIUM 10 MG/ML (10ML CUP) PO (08:32)
[2017-06-29] MEDS: FERROUS SULFATE 60 MG/ML 5ML CUP PO (08:32)
[2017-06-29] MEDS: INSULIN ASPART [NOVOLOG] 3 ML PEN SC ×2 (08:33→12:26)
[2017-06-29] MEDS: ASPIRIN 325 MG TAB PO (08:33)
[2017-06-29] MEDS: PANTOPRAZOLE 40 MG INJ IV (08:33)
[2017-06-29] MEDS: COLLAGENASE 5 GM (UD JAR) TOP (08:33)
[2017-06-29] MEDS: DIMENHYDRINATE 50 MG TAB PO (08:33)
[2017-06-29] MEDS: BALSAM PERU/CASTOR OIL 60 GM TUBE TOP (08:34)
== END 2017-06-29 14:16 | disposition hospice, home (50) ==
LOC: PP2 06-03 01:08 → MS1 06-07 08:00 → MS2 06-14 15:45 → MS1 06-18 22:50 → MS4 06-24 03:25 → TEL 06-10 12:50 → E/R 21:17 → TEL 06-06 02:16 → PP2 06-26 12:23 → TEL 06-07 13:56
PROC: 0D160ZA Bypass Stomach to Jejunum, Open Approach (ICD-10-PCS; principal; 2017-06-04 15:18)
PROC: 0DH Gastrointestinal System, Insertion (ICD-10-PCS; 2017-06-04 15:18)
PROC: 0DJ08ZZ Inspection of Upper Intestinal Tract, Via Natural or Artificial Opening Endoscopic (ICD-10-PCS; 2017-06-04 15:18)
PROC: 0DHA3UZ Insertion of Feeding Device into Jejunum, Percutaneous Approach (ICD-10-PCS; 2017-06-04 15:18)
DX: C16.3 Malignant neoplasm of pyloric antrum (principal); K25.4 Chronic or unspecified gastric ulcer with hemorrhage; L89.313 Pressure ulcer of right buttock, stage 3; L89.323 Pressure ulcer of left buttock, stage 3; E43 Unspecified severe protein-calorie malnutrition; K31.1 Adult hypertrophic pyloric stenosis; C78.7 Secondary malignant neoplasm of liver and intrahepatic bile duct; C78.89 Secondary malignant neoplasm of other digestive organs; N39.0 Urinary tract infection, site not specified; D62 Acute posthemorrhagic anemia; C78.6 Secondary malignant neoplasm of retroperitoneum and peritoneum; I11.0 Hypertensive heart disease with heart failure; I50.9 Heart failure, unspecified; K22.5 Diverticulum of esophagus, acquired; L89.320 Pressure ulcer of left buttock, unstageable; L89.310 Pressure ulcer of right buttock, unstageable; E86.0 Dehydration; D63.8 Anemia in other chronic diseases classified elsewhere; E11.9 Type 2 diabetes mellitus without complications; Z68.24 Body mass index [BMI] 24.0-24.9, adult; B96.20 Unspecified Escherichia coli [E. coli] as the cause of diseases classified elsewhere; Z16.12 Extended spectrum beta lactamase (ESBL) resistance; I48.91 Unspecified atrial fibrillation; Z66 Do not resuscitate
CPT/HCPCS: 36415; 36430; 71045; 77014; 77290; 77334; 77412; 80048; 80053; 80162; 81001; 82962; 83605; 83735; 84100; 84443; 84484; 85014; 85018; 85025; 85610; 85730; 86644; 86850; 86900; 86901; 86920; 87040; 87081; 87086; 93005; 93308; 96374; 97162; 97530; 99285-25; J9190